=== PATIENT | male | born 1930 | race Two or more races ===

== ENCOUNTER 2017-05-02 17:21 | Emergency (ER) | payer MEDICARE, OTHER, MEDICAID ==
[~2017-05-02] VITALS: Ht 154.9 cm; Wt 63.5 kg
[~2017-05-02 17:21] MED LIST: BACITRACIN15 GM TOPIC; COLACE100 MG ORAL; CYANOCOBAL1000 MCG/2 IJ; EXELON1.5 MG ORAL; FISH OIL EC 1,1 EACH PO; FLOMAX0.4 MG ORAL; KEFLEX500 MG ORAL; LASIX20 M1 ORAL; MAXZIDE 75 MG-1 EACH PO; MOBIC15 MG ORAL; MUPIROCIN22 GM TOPIC; NITROSTAT0.4 M1 SL; NORCO 5-325 TA1 EACH ORAL; PROTONIX40 MG ORAL; SERTRALINE HCL25 MG ORAL; SIMVASTATIN20 MG ORAL; SYNTHROID100 MCG ORAL; TYLENOL EXTRA500 MG ORAL; TYLENOL WITH C1 EACH ORAL; ULTRAM50 MG ORAL; ZESTRIL20 MG ORAL; ZOLOFT100 MG ORAL
[2017-05-02 17:45] VITALS: BP 142/82
[2017-05-02] MEDS ORDERED: TYLENOL EXTRA500 MG ORAL (18:35)
[2017-05-02 20:39] VITALS: BP 137/80
--- NOTE | 2017-05-02 21:37 | Emergency Room Report ---
History of Present Illness General Chief Complaint: Multiple Trauma/Fall Source: Patient, Medical Record Present Illness HPI 86-year-old male presents ED status post fall. Patient had a witnessed fall at the half-way. Patient is not recall if he hit his head or LOC. Patient presenting with some left shoulder pain. 5/10, throbbing, nonradiating. Denies any other injuries. Denies photophobia or blurry vision. Denies nausea or vomiting. Denies back pain hip pain. No other aggravating or leading factors. Denies any other associated symptoms Allergies: Coded Allergies: No Known Allergies (Unverified , 05/30/14) Patient History Past Medical History: other - hypothyroid Past Surgical History: none Pertinent Family History: none Social History: Denies: smoking, alcohol use, drug use Immunizations: UTD Reviewed Nursing Documentation: PMH: Agreed, PSxH: Agreed Nursing Documentation-PMH Past Medical History: No History, Except For Hx Cardiac Problems: Yes - hypothyroid,dysrythmia, high cholesterol Hx Hypertension: Yes - HIGH CHOLESTEROL Review of Systems All Other Systems: negative except mentioned in HPI Physical Exam Vital Signs Date Time Temp Pulse Resp B/P (MAP) Pulse Ox O2 Delivery O2 Flow Rate FiO2 05/02/17 17:11 98.1 90 16 142/82 100 Room Air Sp02 EP Interpretation: reviewed, normal General Appearance: no apparent distress, alert, GCS 15, non-toxic Head: normocephalic, atraumatic Eyes: bilateral eye normal inspection, bilateral eye PERRL ENT: hearing grossly normal, normal pharynx, no angioedema, normal voice Neck: full range of motion, supple/symm/no masses Respiratory: chest non-tender, lungs clear, normal breath sounds, speaking full sentences Cardiovascular #1: regular rate, rhythm, no edema Cardiovascular #2: 2+ carotid (R), 2+ carotid (L), 2+ radial (R), 2+ radial (L) , 2+ dorsalis pedis (R), 2+ dorsalis pedis (L) Gastrointestinal: normal bowel sounds, non tender, soft, non-distended, no guarding, no rebound Rectal: deferred Genitourinary: normal inspection, no CVA tenderness Musculoskeletal: back normal, gait/station normal, normal range of motion, non- tender, tender - L shoulder Neurologic: alert, oriented x3, responsive, motor strength/tone normal, sensory intact, speech normal Psychiatric: judgement/insight normal, memory normal, mood/affect normal, no suicidal/homicidal ideation Reflexes: 3+ bicep (R), 3+ bicep (L), 3+ tricep (R), 3+ tricep (L), 3+ knee (R) , 3+ knee (L) Skin: normal color, no rash, warm/dry, well hydrated Lymphatic: no adenopathy Procedures Splinting Splinting : Consent: Verbal Pre-Made Type: MAEGAN wrap - L shoulder Pre-Proc Neuro Vasc Exam: normal Post-Proc Neuro Vasc Exam: normal Patient Tolerated: Well Complications: None Medical Decision Making Diagnostic Impression: Primary Impression: Fall Qualified Codes: W19.XXXA - Unspecified fall, initial encounter Additional Impression: Shoulder contusion Qualified Codes: S40.012A - Contusion of left shoulder, initial encounter ER Course Hospital Course 86-year-old male presents status post fall at half-way. Shoulder pain Differential diagnoses include: Fracture, dislocation, sprain, contusion Clinical course Patient placed on stretcher. After initial history and physical, I ordered CT head and Xrays of L shoulder CT head unremarkable Xrays prelim read shows no acute fracture/dislocation. placed in sling Patient appears stable, emulating well. Safe to discharge back to assisted facility Diagnosis - fall, shoulder contusion Stable and discharged to home with prescription for Tylenol. apply ice, keep elevated. weight bear as tolerated. Followup with PMD. Return to ED if symptoms recur or worsen Other X-Ray Diagnostic Results Other X-Ray Diagnostic Results : X-Ray ordered: L shoulder # of Views/Limited Vs Complete: 3 View Indication: Pain EP Interpretation: Yes Interpretation: no dislocation, no soft tissue swelling, no fractures Impression: No acute disease Electronically Signed by: Electronically signed by Zane Garcia MD CT/MRI/US Diagnostic Results CT/MRI/US Diagnostic Results : Imaging Test Ordered: CT head Impression no acute process Last Vital Signs Date Time Temp Pulse Resp B/P (MAP) Pulse Ox O2 Delivery O2 Flow Rate FiO2 05/02/17 20:39 98.1 16 137/80 100 Room Air 05/02/17 17:11 90 Status: improved Disposition: XFER SNF Condition: Stable Scripts Acetaminophen* (TYLENOL EXTRA STRENGTH*) 500 Mg Tablet 500 MG ORAL Q8H Y for Prn Headache/Temp > 101, #30 TAB 0 Refills Prov: ZANE GARCIA M.D. 05/02/17 Referrals: CHRIS MISHRA (PCP) Patient Instructions: Fall Prevention in Hospitals, Adult ZANE GARCIA M.D. May 02, 2017 21:36
[2017-05-02 22:17] VITALS: BP 137/80
--- NOTE | 2017-05-03 09:54 | Diagnostic Imaging Report ---
Indication: Head trauma. Headache Technique: Contiguous 5 mm thick transaxial imaging of the head obtained in a Siemens Sensation [address] scanner. Soft tissue and bone windows generated. Automatic Exposure Control was utilized. Total Dose length Product (DLP): 1435.[address] Dose Index Volume (CTDIvol): 70.38 mGy Comparison: none Findings: There is moderate prominence of the ventricles, basal cisterns, and cerebral sulci consistent with atrophy. Moderate, nonspecific, white matter hypoattenuation is noted throughout the brain consistent with chronic small vessel disease. There is no midline shift, edema, acute hemorrhage, mass effect, or abnormal extra-axial fluid collections. Bones and extra osseous soft tissues are unremarkable. Impression: No acute intracranial bleed, mass effect or edema. Moderate atrophy of the brain. Evidence of chronic small vessel disease involving white matter tracts. [facility] has communicated the preliminary results to the Emergency Department. Their findings are largely concordant with this report. The CT scanner at [facility] is accredited by the [employer] and the scans are performed using dose optimization techniques as appropriate to a performed exam including Automatic Exposure control.
--- NOTE | 2017-05-03 11:36 | Diagnostic Imaging Report ---
Indication: Pain Findings: 3 views of the left shoulder were obtained. The bones are osteopenic. There is no malalignment or fracture definitely identified. Soft tissues are unremarkable. The aorta is ectatic and moderately calcified. There are surgical clips in the left hilum. IMPRESSION: No acute injury appreciated. Moderate generalized osteopenia
== END 2017-05-02 22:18 ==
LOC: EDBD 17:21 → EEVIPCON 17:21 → EMR 17:55
DX: S40.012A Contusion of left shoulder, initial encounter (principal); E03.9 Hypothyroidism, unspecified; R51 Headache; E78.00 Pure hypercholesterolemia, unspecified; W18.30XA Fall on same level, unspecified, initial encounter; Y92.129 Unspecified place in nursing home as the place of occurrence of the external cause
CPT/HCPCS: 70450; 99284

== ENCOUNTER 2020-04-26 14:33 | Inpatient (IN) | payer MEDICARE, MEDICAID ==
[~2020-04-26] VITALS: Ht 162.6 cm; Wt 70.3 kg
--- NOTE | 2020-04-26 15:08 | Emergency Room Report ---
History of Present Illness General Chief Complaint: Multiple Trauma/Fall Present Illness HPI 89-year-old gentleman here with generalized weakness. The patient tested positive for Covid at his assisted living facility yesterday. The patient's son spoke with the patient today and said that he was feeling generally weak but the patient said that he did not want to come to the hospital. The patient denies any fevers, chills, chest pain, palpitations, shortness of breath, abdominal pain, nausea, vomiting, diarrhea, dysuria. Says that he feels some mild lower back pain after suffering a mechanical fall 3 days ago. No focal numbness or weakness, saddle anesthesia, urinary or fecal retention or incontinence. Patient is a confirmed DNR. Allergies: Coded Allergies: No Known Allergies (Unverified , 05/30/14) COVID-19 Screening Contact w/high risk pt: No Experienced COVID-19 symptoms?: No COVID-19 Testing performed [employer]: No Nursing Documentation-PMH Hx Cardiac Problems: Yes - hypothyroid,dysrythmia, high cholesterol Hx Hypertension: Yes - HIGH CHOLESTEROL Physical Exam Vital Signs Date Time Temp Pulse Resp B/P (MAP) Pulse Ox O2 Delivery O2 Flow Rate FiO2 04/26/20 14:35 97.9 52 16 152/80 (104) 98 Room Air Sp02 EP Interpretation: reviewed, normal General Appearance: no apparent distress, alert, non-toxic Head: normocephalic, atraumatic Eyes: bilateral eye normal inspection, bilateral eye PERRL ENT: hearing grossly normal, normal pharynx, no angioedema, normal voice Neck: full range of motion, supple/symm/no masses Respiratory: chest non-tender, lungs clear, normal breath sounds, speaking full sentences Cardiovascular #1: regular rate, rhythm, no edema Cardiovascular #2: 2+ carotid (R), 2+ carotid (L), 2+ radial (R), 2+ radial (L), 2+ dorsalis pedis (R), 2+ dorsalis pedis (L) Gastrointestinal: normal bowel sounds, non tender, soft, non-distended, no guarding, no rebound Rectal: deferred Genitourinary: normal inspection, no CVA tenderness Musculoskeletal: normal range of motion, gait/station normal, other - Mild tenderness of the midline distal lumbosacral spine. No obvious step-offs or deformities Neurologic: alert, motor strength/tone normal, oriented x3, sensory intact, responsive, speech normal Psychiatric: judgement/insight normal, memory normal, mood/affect normal, no suicidal/homicidal ideation Lymphatic: no adenopathy Medical Decision Making Diagnostic Impression: Primary Impression: UTI (urinary tract infection) Additional Impressions: Fall COVID-19 ER Course Laboratory Tests Test 04/26/20 15:56 04/26/20 16:28 White Blood Count 2.5 K/UL (4.8-10.8) L Red Blood Count 5.47 M/UL (4.70-6.10) Hemoglobin 11.6 G/DL (14.2-18.0) L Hematocrit 35.6 % (42.0-52.0) L Mean Corpuscular Volume 65 FL (80-99) L Mean Corpuscular Hemoglobin 21.3 PG (27.0-31.0) L Mean Corpuscular Hemoglobin Concent 32.6 G/DL (32.0-36.0) Red Cell Distribution Width 15.5 % (11.6-14.8) H Platelet Count 95 K/UL (150-450) L Mean Platelet Volume 8.6 FL (6.5-10.1) Neutrophils (%) (Auto) % (45.0-75.0) Lymphocytes (%) (Auto) % (20.0-45.0) Monocytes (%) (Auto) % (1.0-10.0) Eosinophils (%) (Auto) % (0.0-3.0) Basophils (%) (Auto) % (0.0-2.0) Differential Total Cells Counted 100 Neutrophils % (Manual) 55 % (45-75) Lymphocytes % (Manual) 39 % (20-45) Monocytes % (Manual) 4 % (1-10) Eosinophils % (Manual) 2 % (0-3) Basophils % (Manual) 0 % (0-2) Band Neutrophils 0 % (0-8) Platelet Estimate Decreased L Platelet Morphology Normal Hypochromasia 1+ Anisocytosis 1+ Microcytosis 1+ Prothrombin Time 10.7 SEC (9.30-11.50) Prothrombin Time INR 1.0 (0.9-1.1) Activated Partial Thromboplast Time 30 SEC (23-33) D-Dimer 0.93 mg/L FEU (0.00-0.49) H Sodium Level 138 MMOL/L (136-145) Potassium Level 4.7 MMOL/L (3.5-5.1) Chloride Level 105 MMOL/L (98-107) Carbon Dioxide Level 30 MMOL/L (21-32) Anion Gap 3 mmol/L (5-15) L Blood Urea Nitrogen 32 mg/dL (7-18) H Creatinine 1.2 MG/DL (0.55-1.30) Estimated Glomerular Filtration Rate 57.3 mL/min (>60) Glucose Level 90 MG/DL (74-106) Lactic Acid Level 0.90 mmol/L (0.4-2.0) Calcium Level 8.4 MG/DL (8.5-10.1) L Ferritin 111 NG/ML (8-388) Total Bilirubin 0.3 MG/DL (0.2-1.0) Aspartate Amino Transferase (AST) 24 U/L (15-37) Alanine Aminotransferase (ALT) 15 U/L (12-78) Alkaline Phosphatase 81 U/L (46-116) Lactate Dehydrogenase 173 U/L (81-234) Total Creatine Kinase 82 U/L (26-308) Creatine Kinase MB 2.1 NG/ML (0.0-3.6) Creatine Kinase MB Relative Index 2.5 Troponin I 0.025 ng/mL (0.000-0.056) C-Reactive Protein, Quantitative 2.1 mg/dL (0.00-0.90) H Pro-B-Type Natriuretic Peptide 360 pg/mL (0-125) H Total Protein 6.4 G/DL (6.4-8.2) Albumin 2.9 G/DL (3.4-5.0) L Globulin 3.5 g/dL Albumin/Globulin Ratio 0.8 (1.0-2.7) L Lipase 235 U/L (73-393) Urine Color Yellow Urine Appearance Slightly cloudy Urine pH 6 (4.5-8.0) Urine Specific [place] 1.020 (1.005-1.035) Urine Protein 1+ (NEGATIVE) H Urine Glucose (UA) Negative (NEGATIVE) Urine Ketones Negative (NEGATIVE) Urine Blood Negative (NEGATIVE) Urine Nitrite Positive (NEGATIVE) H Urine Bilirubin Negative (NEGATIVE) Urine Urobilinogen Normal MG/DL (0.0-1.0) Urine Leukocyte Esterase 1+ (NEGATIVE) H Urine RBC 0-2 /HPF (0 - 0) H Urine WBC 5-10 /HPF (0 - 0) H Urine Squamous Epithelial Cells Occasional /LPF Urine Bacteria Many /HPF (NONE) H EK bpm, sinus rhythm no ischemia, intervals WNL. No ectopy Rhythm strip: patient monitored for arrhythmias - no malignant dysrhythmias, runs of PVCs, nor pauses noted Chest x-ray: CXR: No infiltrate/effusion. Possible cardiomegaly. No consolidations. No free air under the diaphragm. No bony abnormalities. Underinflation CT head: Chronic and age-related changes. Negative for acute intracranial bleed or mass-effect CT lumbar spine: Severe and progressive degenerative changes involving T11-T12 and T12-L1 as well as thoracolumbar scoliotic deformity. Likely progressive degenerative remodeling of L1 vertebral body. Could also be due to thoracic compression fracture deformity, acuity indeterminate. 89-year-old male confirmed Covid positive yesterday, here with generalized weakness and multiple falls. Patient was hemodynamically stable in the emergency department and in no acute distress whatsoever. He had normal oxygen saturation on room air and showed no evidence of respiratory distress or increased respiratory effort. He had mild tenderness to palpation of the lower lumbar spine. CT of the lumbar spine showed possible compression fracture of L1, however patient had no tenderness on palpation of this region. Unlikely to be an acute fracture at this time. He had a CT head as well that was unremarkable. Chest x-ray was underinflated but did not show any acute abnormalities. Patient did have evidence of urinary tract infection. Blood and urine cultures pending at this time. He was given Rocephin, azithromycin, Decadron in the emergency department. To be admitted to telemetry. Last Vital Signs Date Time Temp Pulse Resp B/P (MAP) Pulse Ox O2 Delivery O2 Flow Rate FiO2 04/26/20 14:35 97.9 52 16 152/80 (104) 98 Room Air Red Vasquez M.D. Apr 26, 2020 15:08
[2020-04-26] MEDS ORDERED: OMEPRAZOLE20 M2 ORAL (15:20)
[2020-04-26] MEDS ORDERED: LORATADINE10 M1 PO (15:20)
[2020-04-26 16:00] VITALS: BP 121/99
[2020-04-26 16:12] LABS: HEMATOCRIT 35.6 % (42.0-52.0); HEMOGLOBIN 11.6 G/DL (14.2-18.0); MEAN CORPUSCULAR VOLUME 65 FL (80-99); PLATELET COUNT 95 K/UL (150-450); RED BLOOD COUNT 5.47 M/UL (4.70-6.10); RED CELL DISTRIBUTION WIDTH 15.5 % (11.6-14.8); WHITE BLOOD COUNT 2.5 K/UL (4.8-10.8)
[2020-04-26 16:30] LABS: CALCIUM 8.4 MG/DL (8.5-10.1); CREATININE 1.2 MG/DL (0.55-1.30); POTASSIUM 4.7 MMOL/L (3.5-5.1)
[2020-04-26 16:48] LABS: ALBUMIN 2.9 G/DL (3.4-5.0); ALBUMIN/GLOBULIN RATIO 0.8 (1.0-2.7); BILIRUBIN,TOTAL 0.3 MG/DL (0.2-1.0); CKMB 2.1 NG/ML (0.0-3.6)
--- NOTE | 2020-04-26 17:09 | Diagnostic Imaging Report ---
Indications: Back pain, status post fall 3 days prior Technique: Spiral acquisitions obtained through the lumbar spine. Multiplanar reconstructions were generated. No IV contrast utilized. Total dose length product 413 mGycm. CTDIvol(s) 11 mGy. Dose reduction achieved using automated exposure control Comparison: 08/22/2015 Findings: As previously demonstrated, there is marked scoliotic deformity and degenerative change at the thoracolumbar junction. There is severe degenerative change of the T11-12 and T12-L1 discs. There is also lateral offset to the right of L1 on T12. There is interim loss of height of the L1 vertebral body, particularly anterior and on the left lateral aspect, with increased sclerosis below the endplate. There is slightly increased loss of height of the T12 vertebral body as well as compared to the prior study, although some of the anterior wedging was evident previously. The previously noted soft tissue in the inferior T12 endplate and disc has largely ossified in the interim. There are numerous subchondral cysts on either side of the T12-L1 disc but these are smaller than on the prior exam. Very slight loss of height of the left side of the L2 vertebral body is similar to the previous exam and almost certainly due to degenerative remodeling. Subchondral sclerosis and subchondral cyst formation has progressed somewhat in the interim. The remaining vertebral body heights are preserved and the bony alignment is otherwise unchanged. No other evidence of acute fracture or acute alignment abnormality. There is again demonstrated vacuum formation involving the L4-5 and L5-S1 discs. At T12-L1, there is severe narrowing of the left neural foramen. No significant disc bulge or protrusion or spinal stenosis or neural foraminal stenosis. At L1-L2, there is mild narrowing of the left neural foramen, mostly due to circumferential annular bulge. At L3-4, short pedicles and ligamentum flavum hypertrophy result in borderline narrowing of the spinal canal. The neural foramina are preserved. At L4-5, circumferential annular bulge, short pedicles, and ligamentum flavum hypertrophy results in mild narrowing the spinal canal. The neural foramina are preserved. The included extra spinal soft tissues are remarkable for the presence of a hyperdense left renal cyst and a very large right renal cyst. Ill-defined parenchymal opacities are seen at both lung bases. Impression: Severe and progressive degenerative changes involving T11-12 and T12-L1 as well as thoracolumbar scoliotic deformity. Progressive loss of height of the L1 vertebral body. This may be due to progressive degenerative remodeling, but could also be due to thoracic compression fracture deformity, acuity indeterminate. MRI may be useful to clarify if clinically indicated Very slight loss of height of the T12 vertebral body in the interim. Suspected on the basis of progressive degenerative remodeling No other evidence of acute fracture Multilevel degenerative changes, as detailed above Bilateral renal cysts Nonspecific ill-defined parenchymal opacities at the lung bases The CT scanner at [facility] is accredited by the [employer] and the scans are performed using protocols designed to limit radiation exposure to as low as reasonably achievable to attain images of sufficient resolution adequate for diagnostic evaluation.
--- NOTE | 2020-04-26 17:11 | Diagnostic Imaging Report ---
Indication: Pain, cough, status post fall Technique: One view of the chest Comparison: none Findings: Suboptimal inspiration. This results in crowding of the bronchovascular markings. No definite acute infiltrates, effusions, or congestion. There is evidence of prior median sternotomy. Impression: Hypoventilatory exam. No definite acute abnormality
--- NOTE | 2020-04-26 17:14 | Diagnostic Imaging Report ---
Indications: Pain, 3 days status post fall Technique: Spiral acquisitions obtained through the brain. Angled axial and coronal 5 x 5 mm slices were reconstructed. Total dose length product 1045 mGycm. CTDI vol(s) 53 mGy. Dose reduction achieved using automated exposure control Comparison: 05/02/2017 Findings: Again demonstrated is age-related enlargement of the ventricles and extra axial CSF spaces. 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 No acute intracranial hemorrhage or edema, mass effect, or midline shift. There is generalized age-related enlargement of the ventricles and extra-axial CSF spaces. There is fairly extensive periventricular deep white matter low attenuation, consistent with chronic microvascular ischemic change. The calvarium is intact. The mastoids are hypoplastic. Visualized orbits are unremarkable. There is mild ethmoid sinus opacification and bilateral maxillary sinus mucosal disease. Findings are unchanged Impression: Chronic and age related changes. Negative for acute intracranial bleed or mass effect. The CT scanner at [facility] is accredited by the [employer] and the scans are performed using protocols designed to limit radiation exposure to as low as reasonably achievable to attain images of sufficient resolution adequate for diagnostic evaluation.
[2020-04-26 17:16] LABS: BILIRUBIN, URINE NEGATIVE (NEGATIVE); GLUCOSE, URINE (UA) NEGATIVE (NEGATIVE); KETONES,URINE NEGATIVE (NEGATIVE); LEUKOCYTE ESTERASE ,URINE 1+ (NEGATIVE); NITRITE,URINE POSITIVE (NEGATIVE); PH,URINE 6 (4.5-8.0); PROTEIN,URINE 1+ (NEGATIVE); UROBILINOGEN,URINE NORMAL MG/DL (0.0-1.0)
[2020-04-26 17:20] LABS: APPEARANCE,URINE SLIGHTLY CLOUDY; COLOR,URINE YELLOW
[2020-04-26] MEDS ORDERED: cefTRIAXone 1 GM in NS 55 ML IVPB ONE (17:45)
[2020-04-26] MEDS ORDERED: dexAMETHasone 10mg/ml Inj IV ONE (18:15)
[2020-04-26] MEDS ORDERED: Albuterol/Ipratropium 3ml neb HHN PRN (18:15)
[2020-04-26] MEDS ORDERED: Azithromycin 250mg tab ORAL ONE (18:15)
[2020-04-26 18:58] VITALS: BP 132/73
[2020-04-26] MEDS: Heparin 5000 units/ml inj SUBQ SCH (22:00)
[2020-04-26 22:15] VITALS: BP 148/76
[2020-04-27] VITALS (9 sets, daily range): BP systolic 111–186; BP diastolic 71–80
[2020-04-27] MEDS ORDERED: Vancomycin 1 GM in D5W 275 ML IV SCH (00:30)
[2020-04-27] MEDS ORDERED: Cefepime HCl 2 GM in D5W 110 ML IV SCH (04:00)
[2020-04-27] MEDS ORDERED: Vancomycin 1.25gm/250ml Premix IVPB ONE (05:00)
[2020-04-27 05:09] LABS: HEMATOCRIT 37.4 % (42.0-52.0); HEMOGLOBIN 11.9 G/DL (14.2-18.0); MEAN CORPUSCULAR VOLUME 66 FL (80-99); PLATELET COUNT 97 K/UL (150-450); RED BLOOD COUNT 5.64 M/UL (4.70-6.10); RED CELL DISTRIBUTION WIDTH 14.8 % (11.6-14.8)
[2020-04-27 05:14] LABS: WHITE BLOOD COUNT 1.4 K/UL (4.8-10.8)
[2020-04-27 05:20] LABS: ALBUMIN 2.9 G/DL (3.4-5.0); ALBUMIN/GLOBULIN RATIO 0.7 (1.0-2.7); BILIRUBIN,TOTAL 0.3 MG/DL (0.2-1.0); CALCIUM 8.3 MG/DL (8.5-10.1); CREATININE 1.2 MG/DL (0.55-1.30); PHOSPHORUS 3.5 MG/DL (2.5-4.9); POTASSIUM 4.1 MMOL/L (3.5-5.1)
--- NOTE | 2020-04-27 08:58 | Consultation ---
History of Present Illness General Date patient seen: Apr 27, 2020 Time patient seen: 11:06 Chief Complaint: Multiple Trauma/Fall Referring physician: PCP Reason for Consultation: COVID+ Present Illness HPI 89yo M who p/w weakness, COVID + for which ID is consulted. Pt AF, HDS on RA in house. Leukopenic. Per ED d/w pt's son, he was feeling generally weak but the patient said that he did not want to come to the hospital. The patient denies any fevers, chills, chest pain, palpitations, shortness of breath, abdominal pain, nausea, vomiting, diarrhea, dysuria. Says that he feels some mild lower back pain after suffering a mechanical fall 3 days ago. No focal numbness or weakness, saddle anesthesia, urinary or fecal retention or incontinence. Pt is calm in bed on RA, denies any issues breathing nor pain, wants to go home. Doing well. Allergies: Coded Allergies: No Known Allergies (Unverified , 05/30/14) Medication History Scheduled Cyanocobalamin (Vitamin B-12) (Cyanocobalamin Injection), 1,000 MCG IJ EVERY 2 WEEKS, (Reported) Docusate Sodium* (Colace*), 100 MG ORAL TWICE A DAY Furosemide* (Lasix*), 20 MG ORAL TWICE A DAY, (Reported) Levothyroxine Sodium* (Synthroid*), 112 MCG ORAL DAILY, (Reported) Lisinopril* (Zestril*), 20 MG ORAL DAILY, (Reported) Loratadine (Claritin*), 10 MG PO DAILY, (Reported) Meloxicam* (Mobic*), 7.5 MG ORAL DAILY, (Reported) [place]-3/Dha/Epa/Fish Oil (Fish Oil Ec 1,000 Mg Softgel), 1 EACH PO BID, (Reporte d) Omeprazole (Omeprazole), 20 MG ORAL DAILY, (Reported) Pantoprazole* (Protonix*), 40 MG ORAL DAILY, (Reported) Rivastigmine Tartrate* (Exelon*), 1.5 MG ORAL TWICE A DAY, (Reported) Sertraline Hcl* (Sertraline Hcl*), 50 MG ORAL DAILY, (Reported) Sertraline Hcl* (Zoloft*), 100 MG ORAL DAILY, (Reported) Simvastatin (Zocor), 20 MG ORAL BEDTIME, (Reported) Tamsulosin HCl (Flomax), 0.4 MG ORAL DAILY, (Reported) Tamsulosin HCl (Flomax), 0.4 MG ORAL DAILY, (Reported) Tramadol Hcl (Ultram*), 50 MG ORAL Q6H, (Reported) Scheduled PRN Acetaminophen With Codeine 300MG/30MG (T#3)* (Tylenol With Codeine #3 Tablet*), 1 TAB ORAL Q6H PRN for For Pain, (Reported) Acetaminophen* (Tylenol Extra Strength*), 500 MG ORAL Q6H PRN for Mild Pain/Temp > 100.5, (Reported) Acetaminophen* (Tylenol Extra Strength*), 500 MG ORAL Q8H PRN for Prn Headache/Temp > 101 Hydrocodone Bit/Acetaminophen 5-325* ([place] 5-325*), 1 TAB ORAL Q6H PRN for For Pain Hydrocodone Bit/Acetaminophen 5-325* ([place] 5-325*), 1 TAB ORAL Q6H PRN for For Pain Nitroglycerin (Nitrostat), 0.4 MG SL Q5M X3 DOSES PRN for For Pain, (Reported) Miscellaneous Medications Triamterene/Hydrochlorothiazid (Maxzide 75 Mg-50 Mg Tablet), 0.5 EACH PO, (Reported) Patient History Healthcare decision maker Resuscitation status Advanced Directive on File Review of Systems ROS Narrative 10-point ROS neg except as noted per HPI Physical Exam Physical Exam Narrative Gen: NAD HEENT: NCAT Pulm: BL chest rise Abd: Non-distended Ext: No c/c/e Skin: No visible rashes Neuro: Awake Last 24 Hour Vital Signs Date Time Temp Pulse Resp B/P (MAP) Pulse Ox O2 Delivery O2 Flow Rate FiO2 04/27/20 08:29 97.7 60 16 140/71 100 Room Air 04/27/20 06:40 97.7 59 16 144/73 100 Room Air 04/27/20 04:14 98.2 55 18 138/71 100 Room Air 04/27/20 02:04 98.0 53 16 143/78 100 Room Air 04/27/20 00:00 98.5 58 18 137/72 100 Room Air 04/26/20 22:15 98.5 63 18 148/76 100 Room Air 04/26/20 18:58 98.5 58 16 132/73 99 Room Air 04/26/20 16:00 54 16 121/99 100 Room Air 04/26/20 16:00 51 14 Room Air 04/26/20 14:35 97.9 52 16 152/80 (104) 98 Room Air Intake and Output 04/26/20 04/27/20 19:00 07:00 Intake Total 290 ml 360 ml Balance 290 ml 360 ml Intake Oral 240 ml IV Total 50 ml 360 ml Laboratory Tests Test 04/26/20 15:56 04/26/20 16:28 04/27/20 04:45 White Blood Count 2.5 K/UL (4.8-10.8) L 1.4 K/UL (4.8-10.8) *L Red Blood Count 5.47 M/UL (4.70-6.10) 5.64 M/UL (4.70-6.10) Hemoglobin 11.6 G/DL (14.2-18.0) L 11.9 G/DL (14.2-18.0) L Hematocrit 35.6 % (42.0-52.0) L 37.4 % (42.0-52.0) L Mean Corpuscular Volume 65 FL (80-99) L 66 FL (80-99) L Mean Corpuscular Hemoglobin 21.3 PG (27.0-31.0) L 21.0 PG (27.0-31.0) L Mean Corpuscular Hemoglobin Concent 32.6 G/DL (32.0-36.0) 31.7 G/DL (32.0-36.0) L Red Cell Distribution Width 15.5 % (11.6-14.8) H 14.8 % (11.6-14.8) Platelet Count 95 K/UL (150-450) L 97 K/UL (150-450) L Mean Platelet Volume 8.6 FL (6.5-10.1) 8.6 FL (6.5-10.1) Neutrophils (%) (Auto) % (45.0-75.0) % (45.0-75.0) Lymphocytes (%) (Auto) % (20.0-45.0) % (20.0-45.0) Monocytes (%) (Auto) % (1.0-10.0) % (1.0-10.0) Eosinophils (%) (Auto) % (0.0-3.0) % (0.0-3.0) Basophils (%) (Auto) % (0.0-2.0) % (0.0-2.0) Differential Total Cells Counted 100 Neutrophils % (Manual) 55 % (45-75) Pending Lymphocytes % (Manual) 39 % (20-45) Pending Monocytes % (Manual) 4 % (1-10) Eosinophils % (Manual) 2 % (0-3) Basophils % (Manual) 0 % (0-2) Band Neutrophils 0 % (0-8) Platelet Estimate Decreased L Pending Platelet Morphology Normal Pending Hypochromasia 1+ Anisocytosis 1+ Microcytosis 1+ Prothrombin Time 10.7 SEC (9.30-11.50) Prothromb Time International Ratio 1.0 (0.9-1.1) Activated Partial Thromboplast Time 30 SEC (23-33) D-Dimer 0.93 mg/L FEU (0.00-0.49) H Sodium Level 138 MMOL/L (136-145) 135 MMOL/L (136-145) L Potassium Level 4.7 MMOL/L (3.5-5.1) 4.1 MMOL/L (3.5-5.1) Chloride Level 105 MMOL/L (98-107) 101 MMOL/L (98-107) Carbon Dioxide Level 30 MMOL/L (21-32) 26 MMOL/L (21-32) Anion Gap 3 mmol/L (5-15) L 8 mmol/L (5-15) Blood Urea Nitrogen 32 mg/dL (7-18) H 27 mg/dL (7-18) H Creatinine 1.2 MG/DL (0.55-1.30) 1.2 MG/DL (0.55-1.30) Estimat Glomerular Filtration Rate 57.3 mL/min (>60) 57.3 mL/min (>60) Glucose Level 90 MG/DL (74-106) 132 MG/DL (74-106) H Lactic Acid Level 0.90 mmol/L (0.4-2.0) Calcium Level 8.4 MG/DL (8.5-10.1) L 8.3 MG/DL (8.5-10.1) L Ferritin 111 NG/ML (8-388) Total Bilirubin 0.3 MG/DL (0.2-1.0) 0.3 MG/DL (0.2-1.0) Aspartate Amino Transf (AST/SGOT) 24 U/L (15-37) 22 U/L (15-37) Alanine Aminotransferase (ALT/SGPT) 15 U/L (12-78) 13 U/L (12-78) Alkaline Phosphatase 81 U/L (46-116) 88 U/L (46-116) Lactate Dehydrogenase 173 U/L (81-234) Total Creatine Kinase 82 U/L (26-308) Creatine Kinase MB 2.1 NG/ML (0.0-3.6) Creatine Kinase MB Relative Index 2.5 Troponin I 0.025 ng/mL (0.000-0.056) C-Reactive Protein, Quantitative 2.1 mg/dL (0.00-0.90) H 1.8 mg/dL (0.00-0.90) H Pro-B-Type Natriuretic Peptide 360 pg/mL (0-125) H Total Protein 6.4 G/DL (6.4-8.2) 6.8 G/DL (6.4-8.2) Albumin 2.9 G/DL (3.4-5.0) L 2.9 G/DL (3.4-5.0) L Globulin 3.5 g/dL 3.9 g/dL Albumin/Globulin Ratio 0.8 (1.0-2.7) L 0.7 (1.0-2.7) L Lipase 235 U/L (73-393) Urine Color Yellow Urine Appearance Slightly cloudy Urine pH 6 (4.5-8.0) Urine Specific [place] 1.020 (1.005-1.035) Urine Protein 1+ (NEGATIVE) H Urine Glucose (UA) Negative (NEGATIVE) Urine Ketones Negative (NEGATIVE) Urine Blood Negative (NEGATIVE) Urine Nitrite Positive (NEGATIVE) H Urine Bilirubin Negative (NEGATIVE) Urine Urobilinogen Normal MG/DL (0.0-1.0) Urine Leukocyte Esterase 1+ (NEGATIVE) H Urine RBC 0-2 /HPF (0 - 0) H Urine WBC 5-10 /HPF (0 - 0) H Urine Squamous Epithelial Cells Occasional /LPF Urine Bacteria Many /HPF (NONE) H Erythrocyte Sedimentation Rate 18 MM/HR (0-20) Phosphorus Level 3.5 MG/DL (2.5-4.9) Magnesium Level 1.7 MG/DL (1.8-2.4) L Microbiology Date/Time Source Procedure Growth Status 04/27/20 07:10 Nasopharynx SARS-CoV-2 RdRp Gene Assay - Final Complete 04/26/20 18:00 Rectal Mucosa Received Height (Feet): 5 Height (Inches): 4.00 Weight (Pounds): 175 Medications Current Medications Medications (Trade) Dose Ordered Sig/Viktor Route PRN Reason Start Time Stop Time Status Last Admin Dose Admin Acetaminophen (Tylenol) 650 mg Q4H PRN ORAL fever 04/26/20 18:15 05/26/20 18:14 Albuterol/ Ipratropium (Albuterol/ Ipratropium) 3 ml Q4H PRN HHN Shortness of Breath 04/26/20 18:15 05/01/20 18:14 Cefepime HCl 2 gm/ Dextrose 110 ml @ 220 mls/hr Q12HR@0400,1600 IV 04/27/20 04:00 05/04/20 03:59 04/27/20 03:14 Heparin Sodium (Porcine) (Heparin 5000 units/ml) 5,000 units EVERY 12 HOURS SUBQ 04/26/20 21:00 06/10/20 20:59 04/26/20 22:00 Levothyroxine Sodium (Synthroid) 112 mcg Q24H ORAL 04/27/20 06:30 05/27/20 06:29 04/27/20 07:21 Lisinopril (PriniviL) 20 mg DAILY ORAL 04/27/20 09:00 05/27/20 08:59 Ondansetron HCl (Zofran) 4 mg Q6H PRN IVP Nausea & Vomiting 04/26/20 18:15 05/26/20 18:14 Polyethylene Glycol (Miralax) 17 gm DAILYPRN PRN ORAL Constipation 04/26/20 18:15 05/26/20 18:14 Sertraline HCl (Zoloft) 50 mg DAILY ORAL 04/27/20 09:00 05/27/20 08:59 Tamsulosin HCl (Flomax) 0.4 mg DAILY ORAL 04/27/20 09:00 05/27/20 08:59 Temazepam (Restoril) 15 mg HSPRN PRN ORAL Insomnia 04/26/20 18:15 05/03/20 18:14 Vancomycin HCl (Vanco pharmacy to dose) 1 ea DAILY PRN MISC PER RX PROTOCOL 04/27/20 08:00 05/27/20 07:59 Vancomycin HCl 1 gm/Sodium Chloride 275 ml @ 183.708 mls/hr Q24H IVPB 04/28/20 05:00 05/03/20 04:59 Assessment/Plan Assessment/Plan: 89yo M with: COVID pna Leukopenic Satting well on RA 04/26 COVID rapid positive CXR: No acute process BCx p UA 5-10 WBC, UCx p Cr 1.2 Thrombocytopenia, plts in 90s SNF resident Plan: Stop cefepime/vanco Start CTX 1g IV daily #2/5, though if remains on RA can stop soon Monitor off steroids as pt doing well on RA Not candidate for RDV at this time as doing well on RA F/u BCx, UCx Monitor CBC/CMP Monitor temp curve, hemodynamics Monitor resp status COVID isolation D/w RN Thank you for this consult. [facility] will continue to follow. Lesley Lanier M.D. Apr 27, 2020 08:58
[2020-04-27] MEDS ORDERED: Lisinopril 20mg tab ORAL SCH (09:00)
[2020-04-27] MEDS: Heparin 5000 units/ml inj SUBQ SCH (09:00)
[2020-04-27] MEDS: Sertraline 50mg tab ORAL SCH (09:24)
[2020-04-27] MEDS: Tamsulosin 0.4mg cap ORAL SCH (09:24)
--- NOTE | 2020-04-27 13:12 | Consultation ---
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 Pt tested positive for COVID 19 at the halfway. He was found to have an UTI and is admitted for further management. Allergies: Coded Allergies: No Known Allergies (Unverified , 05/30/14) Medication History Scheduled Cyanocobalamin (Vitamin B-12) (Cyanocobalamin Injection), 1,000 MCG IJ EVERY 2 WEEKS, (Reported) Docusate Sodium* (Colace*), 100 MG ORAL TWICE A DAY Furosemide* (Lasix*), 20 MG ORAL TWICE A DAY, (Reported) Levothyroxine Sodium* (Synthroid*), 112 MCG ORAL DAILY, (Reported) Lisinopril* (Zestril*), 20 MG ORAL DAILY, (Reported) Loratadine (Claritin*), 10 MG PO DAILY, (Reported) Meloxicam* (Mobic*), 7.5 MG ORAL DAILY, (Reported) [place]-3/Dha/Epa/Fish Oil (Fish Oil Ec 1,000 Mg Softgel), 1 EACH PO BID, (Reported) Omeprazole (Omeprazole), 20 MG ORAL DAILY, (Reported) Pantoprazole* (Protonix*), 40 MG ORAL DAILY, (Reported) Rivastigmine Tartrate* (Exelon*), 1.5 MG ORAL TWICE A DAY, (Reported) Sertraline Hcl* (Sertraline Hcl*), 50 MG ORAL DAILY, (Reported) Sertraline Hcl* (Zoloft*), 100 MG ORAL DAILY, (Reported) Simvastatin (Zocor), 20 MG ORAL BEDTIME, (Reported) Tamsulosin HCl (Flomax), 0.4 MG ORAL DAILY, (Reported) Tamsulosin HCl (Flomax), 0.4 MG ORAL DAILY, (Reported) Tramadol Hcl (Ultram*), 50 MG ORAL Q6H, (Reported) Scheduled PRN Acetaminophen With Codeine 300MG/30MG (T#3)* (Tylenol With Codeine #3 Tablet*), 1 TAB ORAL Q6H PRN for For Pain, (Reported) Acetaminophen* (Tylenol Extra Strength*), 500 MG ORAL Q6H PRN for Mild Pain/Temp > 100.5, (Reported) Acetaminophen* (Tylenol Extra Strength*), 500 MG ORAL Q8H PRN for Prn Headache/Temp > 101 Hydrocodone Bit/Acetaminophen 5-325* ([place] 5-325*), 1 TAB ORAL Q6H PRN for For Pain Hydrocodone Bit/Acetaminophen 5-325* ([place] 5-325*), 1 TAB ORAL Q6H PRN for For Pain Nitroglycerin (Nitrostat), 0.4 MG SL Q5M X3 DOSES PRN for For Pain, (Reported) Miscellaneous Medications Triamterene/Hydrochlorothiazid (Maxzide 75 Mg-50 Mg Tablet), 0.5 EACH PO, (Reported) Patient History Healthcare decision maker Resuscitation status Advanced Directive on File Past Medical/Surgical History Past Medical/Surgical History: (1) Hx of CABG (2) Hx of endarterectomy (3) History of CVA (cerebrovascular accident) Review of Systems All Other Systems: negative except mentioned in HPI Physical Exam General Appearance: WD/WN, no apparent distress Lines, tubes and drains: peripheral HEENT: normocephalic, atraumatic Neck: non-tender, normal alignment Respiratory/Chest: chest wall non-tender, lungs clear Breasts: no masses Cardiovascular/Chest: normal rate Abdomen: normal bowel sounds, non tender, hyperactive bowel sounds Extremities: non-tender Last 24 Hour Vital Signs Date Time Temp Pulse Resp B/P (MAP) Pulse Ox O2 Delivery O2 Flow Rate FiO2 04/27/20 12:00 96.6 58 20 168/75 (106) 98 04/27/20 09:48 Room Air 04/27/20 09:27 186/80 04/27/20 09:06 97.7 60 16 140/71 100 Room Air 04/27/20 09:00 97.7 51 20 186/80 (115) 100 04/27/20 09:00 52 04/27/20 08:29 97.7 60 16 140/71 100 Room Air 04/27/20 06:40 97.7 59 16 144/73 100 Room Air 04/27/20 04:14 98.2 55 18 138/71 100 Room Air 04/27/20 02:04 98.0 53 16 143/78 100 Room Air 04/27/20 00:00 98.5 58 18 137/72 100 Room Air 04/26/20 22:15 98.5 63 18 148/76 100 Room Air 04/26/20 18:58 98.5 58 16 132/73 99 Room Air 04/26/20 16:00 54 16 121/99 100 Room Air 04/26/20 16:00 51 14 Room Air 04/26/20 14:35 97.9 52 16 152/80 (104) 98 Room Air Intake and Output 04/26/20 04/27/20 19:00 07:00 Intake Total 290 ml 360 ml Balance 290 ml 360 ml Intake Oral 240 ml IV Total 50 ml 360 ml Laboratory Tests Test 04/26/20 15:56 04/26/20 16:28 04/27/20 04:45 White Blood Count 2.5 K/UL (4.8-10.8) L 1.4 K/UL (4.8-10.8) *L Red Blood Count 5.47 M/UL (4.70-6.10) 5.64 M/UL (4.70-6.10) Hemoglobin 11.6 G/DL (14.2-18.0) L 11.9 G/DL (14.2-18.0) L Hematocrit 35.6 % (42.0-52.0) L 37.4 % (42.0-52.0) L Mean Corpuscular Volume 65 FL (80-99) L 66 FL (80-99) L Mean Corpuscular Hemoglobin 21.3 PG (27.0-31.0) L 21.0 PG (27.0-31.0) L Mean Corpuscular Hemoglobin Concent 32.6 G/DL (32.0-36.0) 31.7 G/DL (32.0-36.0) L Red Cell Distribution Width 15.5 % (11.6-14.8) H 14.8 % (11.6-14.8) Platelet Count 95 K/UL (150-450) L 97 K/UL (150-450) L Mean Platelet Volume 8.6 FL (6.5-10.1) 8.6 FL (6.5-10.1) Neutrophils (%) (Auto) % (45.0-75.0) % (45.0-75.0) Lymphocytes (%) (Auto) % (20.0-45.0) % (20.0-45.0) Monocytes (%) (Auto) % (1.0-10.0) % (1.0-10.0) Eosinophils (%) (Auto) % (0.0-3.0) % (0.0-3.0) Basophils (%) (Auto) % (0.0-2.0) % (0.0-2.0) Differential Total Cells Counted 100 100 Neutrophils % (Manual) 55 % (45-75) 75 % (45-75) Lymphocytes % (Manual) 39 % (20-45) 20 % (20-45) Monocytes % (Manual) 4 % (1-10) 5 % (1-10) Eosinophils % (Manual) 2 % (0-3) 0 % (0-3) Basophils % (Manual) 0 % (0-2) 0 % (0-2) Band Neutrophils 0 % (0-8) 0 % (0-8) Platelet Estimate Decreased L Decreased L Platelet Morphology Normal Normal Hypochromasia 1+ Anisocytosis 1+ 1+ Microcytosis 1+ 1+ Prothrombin Time 10.7 SEC (9.30-11.50) Prothromb Time International Ratio 1.0 (0.9-1.1) Activated Partial Thromboplast Time 30 SEC (23-33) D-Dimer 0.93 mg/L FEU (0.00-0.49) H Sodium Level 138 MMOL/L (136-145) 135 MMOL/L (136-145) L Potassium Level 4.7 MMOL/L (3.5-5.1) 4.1 MMOL/L (3.5-5.1) Chloride Level 105 MMOL/L (98-107) 101 MMOL/L (98-107) Carbon Dioxide Level 30 MMOL/L (21-32) 26 MMOL/L (21-32) Anion Gap 3 mmol/L (5-15) L 8 mmol/L (5-15) Blood Urea Nitrogen 32 mg/dL (7-18) H 27 mg/dL (7-18) H Creatinine 1.2 MG/DL (0.55-1.30) 1.2 MG/DL (0.55-1.30) Estimat Glomerular Filtration Rate 57.3 mL/min (>60) 57.3 mL/min (>60) Glucose Level 90 MG/DL (74-106) 132 MG/DL (74-106) H Lactic Acid Level 0.90 mmol/L (0.4-2.0) Calcium Level 8.4 MG/DL (8.5-10.1) L 8.3 MG/DL (8.5-10.1) L Ferritin 111 NG/ML (8-388) Total Bilirubin 0.3 MG/DL (0.2-1.0) 0.3 MG/DL (0.2-1.0) Aspartate Amino Transf (AST/SGOT) 24 U/L (15-37) 22 U/L (15-37) Alanine Aminotransferase (ALT/SGPT) 15 U/L (12-78) 13 U/L (12-78) Alkaline Phosphatase 81 U/L (46-116) 88 U/L (46-116) Lactate Dehydrogenase 173 U/L (81-234) Total Creatine Kinase 82 U/L (26-308) Creatine Kinase MB 2.1 NG/ML (0.0-3.6) Creatine Kinase MB Relative Index 2.5 Troponin I 0.025 ng/mL (0.000-0.056) C-Reactive Protein, Quantitative 2.1 mg/dL (0.00-0.90) H 1.8 mg/dL (0.00-0.90) H Pro-B-Type Natriuretic Peptide 360 pg/mL (0-125) H Total Protein 6.4 G/DL (6.4-8.2) 6.8 G/DL (6.4-8.2) Albumin 2.9 G/DL (3.4-5.0) L 2.9 G/DL (3.4-5.0) L Globulin 3.5 g/dL 3.9 g/dL Albumin/Globulin Ratio 0.8 (1.0-2.7) L 0.7 (1.0-2.7) L Lipase 235 U/L (73-393) Urine Color Yellow Urine Appearance Slightly cloudy Urine pH 6 (4.5-8.0) Urine Specific [place] 1.020 (1.005-1.035) Urine Protein 1+ (NEGATIVE) H Urine Glucose (UA) Negative (NEGATIVE) Urine Ketones Negative (NEGATIVE) Urine Blood Negative (NEGATIVE) Urine Nitrite Positive (NEGATIVE) H Urine Bilirubin Negative (NEGATIVE) Urine Urobilinogen Normal MG/DL (0.0-1.0) Urine Leukocyte Esterase 1+ (NEGATIVE) H Urine RBC 0-2 /HPF (0 - 0) H Urine WBC 5-10 /HPF (0 - 0) H Urine Squamous Epithelial Cells Occasional /LPF Urine Bacteria Many /HPF (NONE) H Erythrocyte Sedimentation Rate 18 MM/HR (0-20) Phosphorus Level 3.5 MG/DL (2.5-4.9) Magnesium Level 1.7 MG/DL (1.8-2.4) L Microbiology Date/Time Source Procedure Growth Status 04/27/20 07:10 Nasopharynx SARS-CoV-2 RdRp Gene Assay - Final Complete 04/26/20 18:00 Rectal Mucosa Received Height (Feet): 5 Height (Inches): 4.00 Weight (Pounds): 175 Medications Current Medications Medications (Trade) Dose Ordered Sig/Viktor Route PRN Reason Start Time Stop Time Status Last Admin Dose Admin Acetaminophen (Tylenol) 650 mg Q4H PRN ORAL fever 04/26/20 18:15 05/26/20 18:14 Albuterol/ Ipratropium (Albuterol/ Ipratropium) 3 ml Q4H PRN HHN Shortness of Breath 04/26/20 18:15 05/01/20 18:14 Ceftriaxone Sodium 1 gm/ Dextrose 55 ml @ 110 mls/hr Q24H IVPB 04/27/20 15:00 05/04/20 14:59 Levothyroxine Sodium (Synthroid) 112 mcg Q24H ORAL 04/27/20 06:30 05/27/20 06:29 04/27/20 07:21 Lisinopril (PriniviL) 20 mg DAILY ORAL 04/27/20 09:00 05/27/20 08:59 04/27/20 09:27 Ondansetron HCl (Zofran) 4 mg Q6H PRN IVP Nausea & Vomiting 04/26/20 18:15 05/26/20 18:14 Polyethylene Glycol (Miralax) 17 gm DAILYPRN PRN ORAL Constipation 04/26/20 18:15 05/26/20 18:14 Sertraline HCl (Zoloft) 50 mg DAILY ORAL 04/27/20 09:00 05/27/20 08:59 04/27/20 09:24 Tamsulosin HCl (Flomax) 0.4 mg DAILY ORAL 04/27/20 09:00 05/27/20 08:59 04/27/20 09:24 Temazepam (Restoril) 15 mg HSPRN PRN ORAL Insomnia 04/26/20 18:15 05/03/20 18:14 Assessment/Plan Problem List: (1) UTI (urinary tract infection) ICD Codes: N39.0 - Urinary tract infection, site not specified SNOMED: 51499675 (2) Pancytopenia ICD Codes: D61.818 - Other pancytopenia SNOMED: 749259493 (3) COVID-19 ICD Codes: U07.1 - COVID-19 SNOMED: 529727853 (4) History of hypertension ICD Codes: Z86.79 - Personal history of other diseases of the circulatory syst em SNOMED: 141961609 (5) History of CVA (cerebrovascular accident) ICD Codes: Z86.73 - Personal history of transient ischemic attack (TIA), and cerebral infarction without residual deficits SNOMED: 710289784 (6) Hx of endarterectomy ICD Codes: Z98.890 - Other specified postprocedural states SNOMED: 440361346 (7) Hx of CABG ICD Codes: Z95.1 - Presence of aortocoronary bypass graft SNOMED: 278685976, 208784449 Assessment/Plan: urine cultures iv abx covid isolation check inflammatory markers: CRP monitor BP resume old meds ID to see dvt prophylaxis Yumiko Valerio MD Apr 27, 2020 13:12
--- NOTE | 2020-04-27 13:19 | History & Physical ---
History and Physical History & Physicial Dictated for Int Med-Dr Oakley no. [id number] Alex Buchanan MD Apr 27, 2020 13:19
--- NOTE | 2020-04-27 13:26 | Pulmonology Progress Note ---
Subjective ROS Limited/Unobtainable: No Constitutional: Reports: no symptoms Allergies: Coded Allergies: No Known Allergies (Unverified , 05/30/14) Objective Last 24 Hour Vital Signs Date Time Temp Pulse Resp B/P (MAP) Pulse Ox O2 Delivery O2 Flow Rate FiO2 04/27/20 12:00 96.6 58 20 168/75 (106) 98 04/27/20 09:48 Room Air 04/27/20 09:27 186/80 04/27/20 09:06 97.7 60 16 140/71 100 Room Air 04/27/20 09:00 97.7 51 20 186/80 (115) 100 04/27/20 09:00 52 04/27/20 08:29 97.7 60 16 140/71 100 Room Air 04/27/20 06:40 97.7 59 16 144/73 100 Room Air 04/27/20 04:14 98.2 55 18 138/71 100 Room Air 04/27/20 02:04 98.0 53 16 143/78 100 Room Air 04/27/20 00:00 98.5 58 18 137/72 100 Room Air 04/26/20 22:15 98.5 63 18 148/76 100 Room Air 04/26/20 18:58 98.5 58 16 132/73 99 Room Air 04/26/20 16:00 54 16 121/99 100 Room Air 04/26/20 16:00 51 14 Room Air 04/26/20 14:35 97.9 52 16 152/80 (104) 98 Room Air Intake and Output0 04/26/20 04/27/20 19:00 07:00 Intake Total 290 ml 360 ml Balance 290 ml 360 ml Intake Oral 240 ml IV Total 50 ml 360 ml General Appearance: WD/WN HEENT: normocephalic, atraumatic Respiratory: chest wall non-tender Cardiovascular: normal peripheral pulses, normal rate Abdomen: normal bowel sounds, soft, non tender Genitourinary: normal external genitalia Skin: no rash 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 Lymphatic: no neck adenopathy Microbiology Date/Time Source Procedure Growth Status 04/27/20 07:10 Nasopharynx SARS-CoV-2 RdRp Gene Assay - Final Complete 04/26/20 18:00 Rectal Mucosa Received Laboratory Tests 04/26/20 15:56: White Blood Count 2.5L, Red Blood Count 5.47, Hemoglobin 11.6L, Hematocrit 35.6L , Mean Corpuscular Volume 65L, Mean Corpuscular Hemoglobin 21.3L, Mean Corpuscular Hemoglobin Concent 32.6, Red Cell Distribution Width 15.5H, Platelet Count 95L, Mean Platelet Volume 8.6, Neutrophils (%) (Auto) , Lymphocytes (%) (Auto) , Monocytes (%) (Auto) , Eosinophils (%) (Auto) , Basophils (%) (Auto) , Differential Total Cells Counted 100, Neutrophils % (Manual) 55, Lymphocytes % (Manual) 39, Monocytes % (Manual) 4, Eosinophils % (Manual) 2, Basophils % (Manual) 0, Band Neutrophils 0, Platelet Estimate DecreasedL, Platelet Morphology Normal, Hypochromasia 1+, Anisocytosis 1+, Microcytosis 1+, Prothrombin Time 10.7, Prothromb Time International Ratio 1.0, Activated Partial Thromboplast Time 30, D-Dimer 0.93H, Sodium Level 138, Potassium Level 4.7, Chloride Level 105, Carbon Dioxide Level 30, Anion Gap 3L, Blood Urea Nitrogen 32H, Creatinine 1.2, Estimat Glomerular Filtration Rate 57.3, Glucose Level 90, Lactic Acid Level 0.90, Calcium Level 8.4L, Ferritin 111, Total Bilirubin 0.3, Aspartate Amino Transf (AST/SGOT) 24, Alanine Aminotransferase (ALT/SGPT) 15, Alkaline Phosphatase 81, Lactate Dehydrogenase 173, Total Creatine Kinase 82, Creatine Kinase MB 2.1, Creatine Kinase MB Relative Index 2.5, Troponin I 0.025, C-Reactive Protein, Quantitative 2.1H, Pro-B-Type Natriuretic Peptide 360H, Total Protein 6.4, Albumin 2.9L, Globulin 3.5, Albumin/Globulin Ratio 0.8L, Lipase 235 04/26/20 16:28: Urine Color Yellow, Urine Appearance Slightly cloudy, Urine pH 6, Urine Specific [place] 1.020, Urine Protein 1+H, Urine Glucose (UA) Negative, Urine Ketones Negative, Urine Blood Negative, Urine Nitrite PositiveH, Urine Bilirubin Negative, Urine Urobilinogen Normal, Urine Leukocyte Esterase 1+H, Urine RBC 0- 2H, Urine WBC 5-10H, Urine Squamous Epithelial Cells Occasional, Urine Bacteria ManyH 12/23/20 04:45: White Blood Count 1.4*L, Red Blood Count 5.64, Hemoglobin 11.9L, Hematocrit 37.4L, Mean Corpuscular Volume 66L, Mean Corpuscular Hemoglobin 21.0L, Mean Corpuscular Hemoglobin Concent 31.7L, Red Cell Distribution Width 14.8, Platelet Count 97L, Mean Platelet Volume 8.6, Neutrophils (%) (Auto) , Lymphocytes (%) (Auto) , Monocytes (%) (Auto) , Eosinophils (%) (Auto) , Basophils (%) (Auto) , Differential Total Cells Counted 100, Neutrophils % (Manual) 75, Lymphocytes % (Manual) 20, Monocytes % (Manual) 5, Eosinophils % (Manual) 0, Basophils % (Manual) 0, Band Neutrophils 0, Platelet Estimate DecreasedL, Platelet Morphology Normal, Anisocytosis 1+, Microcytosis 1+, Sodium Level 135L, Potassium Level 4.1, Chloride Level 101, Carbon Dioxide Level 26, Anion Gap 8, Blood Urea Nitrogen 27H, Creatinine 1.2, Estimat Glomerular Filtration Rate 57.3, Glucose Level 132H, Calcium Level 8.3L, Total Bilirubin 0.3, Aspartate Amino Transf (AST/SGOT) 22, Alanine Aminotransferase (ALT/SGPT) 13, Alkaline Phosphatase 88, C-Reactive Protein, Quantitative 1.8H, Total Protein 6.8, Albumin 2.9L, Globulin 3.9, Albumin/Globulin Ratio 0.7L, Erythrocyte Sed imentation Rate 18, Phosphorus Level 3.5, Magnesium Level 1.7L, Thyroid Stimulating Hormone (TSH) [Pending], Free Thyroxine [Pending], Free Triiodothyronine [Pending] Current Medications Medications (Trade) Dose Ordered Sig/Viktor Route PRN Reason Start Time Stop Time Status Last Admin Dose Admin Acetaminophen (Tylenol) 650 mg Q4H PRN ORAL fever 04/26/20 18:15 05/26/20 18:14 Albuterol/ Ipratropium (Albuterol/ Ipratropium) 3 ml Q4H PRN HHN Shortness of Breath 04/26/20 18:15 05/01/20 18:14 Ceftriaxone Sodium 1 gm/ Dextrose 55 ml @ 110 mls/hr Q24H IVPB 04/27/20 15:00 05/04/20 14:59 Levothyroxine Sodium (Synthroid) 112 mcg Q24H ORAL 04/27/20 06:30 05/27/20 06:29 04/27/20 07:21 Lisinopril (PriniviL) 20 mg DAILY ORAL 04/27/20 09:00 05/27/20 08:59 04/27/20 09:27 Ondansetron HCl (Zofran) 4 mg Q6H PRN IVP Nausea & Vomiting 04/26/20 18:15 05/26/20 18:14 Polyethylene Glycol (Miralax) 17 gm DAILYPRN PRN ORAL Constipation 04/26/20 18:15 05/26/20 18:14 Sertraline HCl (Zoloft) 50 mg DAILY ORAL 04/27/20 09:00 05/27/20 08:59 04/27/20 09:24 Tamsulosin HCl (Flomax) 0.4 mg DAILY ORAL 04/27/20 09:00 05/27/20 08:59 04/27/20 09:24 Temazepam (Restoril) 15 mg HSPRN PRN ORAL Insomnia 04/26/20 18:15 05/03/20 18:14 Assessment/Plan Problems: (1) UTI (urinary tract infection) (2) Pancytopenia (3) COVID-19 (4) History of hypertension (5) History of CVA (cerebrovascular accident) (6) Hx of endarterectomy (7) Hx of CABG (8) Hypothyroidism Assessment/Plan urine cultures iv abx, on ceftriaxone now watch wbc, reverse isolation now covid isolation check inflammatory markers: CRP monitor BP resume old meds ID to see dvt prophylaxis Yumiko Valerio MD Apr 27, 2020 13:26
[2020-04-27] MEDS: Lisinopril 20mg tab ORAL SCH (13:31)
[2020-04-27 13:50] LABS: APPEARANCE,URINE CLEAR; BILIRUBIN, URINE NEGATIVE (NEGATIVE); COLOR,URINE PALE YELLOW; GLUCOSE, URINE (UA) NEGATIVE (NEGATIVE); KETONES,URINE NEGATIVE (NEGATIVE); LEUKOCYTE ESTERASE ,URINE NEGATIVE (NEGATIVE); NITRITE,URINE NEGATIVE (NEGATIVE); PH,URINE 6 (4.5-8.0); PROTEIN,URINE NEGATIVE (NEGATIVE); UROBILINOGEN,URINE NORMAL MG/DL (0.0-1.0)
--- NOTE | 2020-04-27 13:50 | Cardiac Electrophysiology PN ---
Subjective Subjective [id number] Objective Last 24 Hour Vital Signs Date Time Temp Pulse Resp B/P (MAP) Pulse Ox O2 Delivery O2 Flow Rate FiO2 04/27/20 13:31 168/75 04/27/20 12:00 96.6 58 20 168/75 (106) 98 04/27/20 09:48 Room Air 04/27/20 09:27 186/80 04/27/20 09:06 97.7 60 16 140/71 100 Room Air 04/27/20 09:00 97.7 51 20 186/80 (115) 100 04/27/20 09:00 52 04/27/20 08:29 97.7 60 16 140/71 100 Room Air 04/27/20 06:40 97.7 59 16 144/73 100 Room Air 04/27/20 04:14 98.2 55 18 138/71 100 Room Air 04/27/20 02:04 98.0 53 16 143/78 100 Room Air 04/27/20 00:00 98.5 58 18 137/72 100 Room Air 04/26/20 22:15 98.5 63 18 148/76 100 Room Air 04/26/20 18:58 98.5 58 16 132/73 99 Room Air 04/26/20 16:00 54 16 121/99 100 Room Air 04/26/20 16:00 51 14 Room Air 04/26/20 14:35 97.9 52 16 152/80 (104) 98 Room Air Intake and Output 04/26/20 04/27/20 19:00 07:00 Intake Total 290 ml 360 ml Balance 290 ml 360 ml Intake Oral 240 ml IV Total 50 ml 360 ml Laboratory Tests Test 04/26/20 15:56 04/26/20 16:28 04/27/20 04:45 04/27/20 13:30 White Blood Count 2.5 K/UL (4.8-10.8) L 1.4 K/UL (4.8-10.8) *L Red Blood Count 5.47 M/UL (4.70-6.10) 5.64 M/UL (4.70-6.10) Hemoglobin 11.6 G/DL (14.2-18.0) L 11.9 G/DL (14.2-18.0) L Hematocrit 35.6 % (42.0-52.0) L 37.4 % (42.0-52.0) L Mean Corpuscular Volume 65 FL (80-99) L 66 FL (80-99) L Mean Corpuscular Hemoglobin 21.3 PG (27.0-31.0) L 21.0 PG (27.0-31.0) L Mean Corpuscular Hemoglobin Concent 32.6 G/DL (32.0-36.0) 31.7 G/DL (32.0-36.0) L Red Cell Distribution Width 15.5 % (11.6-14.8) H 14.8 % (11.6-14.8) Platelet Count 95 K/UL (150-450) L 97 K/UL (150-450) L Mean Platelet Volume 8.6 FL (6.5-10.1) 8.6 FL (6.5-10.1) Neutrophils (%) (Auto) % (45.0-75.0) % (45.0-75.0) Lymphocytes (%) (Auto) % (20.0-45.0) % (20.0-45.0) Monocytes (%) (Auto) % (1.0-10.0) % (1.0-10.0) Eosinophils (%) (Auto) % (0.0-3.0) % (0.0-3.0) Basophils (%) (Auto) % (0.0-2.0) % (0.0-2.0) Differential Total Cells Counted 100 100 Neutrophils % (Manual) 55 % (45-75) 75 % (45-75) Lymphocytes % (Manual) 39 % (20-45) 20 % (20-45) Monocytes % (Manual) 4 % (1-10) 5 % (1-10) Eosinophils % (Manual) 2 % (0-3) 0 % (0-3) Basophils % (Manual) 0 % (0-2) 0 % (0-2) Band Neutrophils 0 % (0-8) 0 % (0-8) Platelet Estimate Decreased L Decreased L Platelet Morphology Normal Normal Hypochromasia 1+ Anisocytosis 1+ 1+ Microcytosis 1+ 1+ Prothrombin Time 10.7 SEC (9.30-11.50) Prothromb Time International Ratio 1.0 (0.9-1.1) Activated Partial Thromboplast Time 30 SEC (23-33) D-Dimer 0.93 mg/L FEU (0.00-0.49) H Sodium Level 138 MMOL/L (136-145) 135 MMOL/L (136-145) L Potassium Level 4.7 MMOL/L (3.5-5.1) 4.1 MMOL/L (3.5-5.1) Chloride Level 105 MMOL/L (98-107) 101 MMOL/L (98-107) Carbon Dioxide Level 30 MMOL/L (21-32) 26 MMOL/L (21-32) Anion Gap 3 mmol/L (5-15) L 8 mmol/L (5-15) Blood Urea Nitrogen 32 mg/dL (7-18) H 27 mg/dL (7-18) H Creatinine 1.2 MG/DL (0.55-1.30) 1.2 MG/DL (0.55-1.30) Estimat Glomerular Filtration Rate 57.3 mL/min (>60) 57.3 mL/min (>60) Glucose Level 90 MG/DL (74-106) 132 MG/DL (74-106) H Lactic Acid Level 0.90 mmol/L (0.4-2.0) Calcium Level 8.4 MG/DL (8.5-10.1) L 8.3 MG/DL (8.5-10.1) L Ferritin 111 NG/ML (8-388) Total Bilirubin 0.3 MG/DL (0.2-1.0) 0.3 MG/DL (0.2-1.0) Aspartate Amino Transf (AST/SGOT) 24 U/L (15-37) 22 U/L (15-37) Alanine Aminotransferase (ALT/SGPT) 15 U/L (12-78) 13 U/L (12-78) Alkaline Phosphatase 81 U/L (46-116) 88 U/L (46-116) Lactate Dehydrogenase 173 U/L (81-234) Total Creatine Kinase 82 U/L (26-308) Creatine Kinase MB 2.1 NG/ML (0.0-3.6) Creatine Kinase MB Relative Index 2.5 Troponin I 0.025 ng/mL (0.000-0.056) C-Reactive Protein, Quantitative 2.1 mg/dL (0.00-0.90) H 1.8 mg/dL (0.00-0.90) H Pro-B-Type Natriuretic Peptide 360 pg/mL (0-125) H Total Protein 6.4 G/DL (6.4-8.2) 6.8 G/DL (6.4-8.2) Albumin 2.9 G/DL (3.4-5.0) L 2.9 G/DL (3.4-5.0) L Globulin 3.5 g/dL 3.9 g/dL Albumin/Globulin Ratio 0.8 (1.0-2.7) L 0.7 (1.0-2.7) L Lipase 235 U/L (73-393) Urine Color Yellow Pending Urine Appearance Slightly cloudy Pending Urine pH 6 (4.5-8.0) Pending Urine Specific [place] 1.020 (1.005-1.035) Pending Urine Protein 1+ (NEGATIVE) H Pending Urine Glucose (UA) Negative (NEGATIVE) Pending Urine Ketones Negative (NEGATIVE) Pending Urine Blood Negative (NEGATIVE) Pending Urine Nitrite Positive (NEGATIVE) H Pending Urine Bilirubin Negative (NEGATIVE) Pending Urine Urobilinogen Normal MG/DL (0.0-1.0) Pending Urine Leukocyte Esterase 1+ (NEGATIVE) H Pending Urine RBC 0-2 /HPF (0 - 0) H Pending Urine WBC 5-10 /HPF (0 - 0) H Pending Urine Squamous Epithelial Cells Occasional /LPF Pending Urine Bacteria Many /HPF (NONE) H Pending Erythrocyte Sedimentation Rate 18 MM/HR (0-20) Phosphorus Level 3.5 MG/DL (2.5-4.9) Magnesium Level 1.7 MG/DL (1.8-2.4) L Thyroid Stimulating Hormone (TSH) 1.418 uiU/mL (0.358-3.740) Free Thyroxine Pending Free Triiodothyronine 1.4 pg/mL (2.3-4.2) L Microbiology Date/Time Source Procedure Growth Status 04/27/20 07:10 Nasopharynx SARS-CoV-2 RdRp Gene Assay - Final Complete 04/26/20 18:00 Rectal Mucosa Received Jl Scott MD Apr 27, 2020 13:50
[2020-04-27] MEDS: cefTRIAXone 1 GM in D5W 55 ML IVPB SCH (15:06)
--- NOTE | 2020-04-27 15:44 | History and Physical Report ---
DATE OF ADMISSION: 04/26/2020 CHIEF COMPLAINT: The patient is an 89-year-old male who presents with a chief complaint of generalized weakness. HISTORY OF PRESENT ILLNESS: The patient is a resident of [facility]. The patient tested COVID positive one day prior to admission at the [facility] living facility. The patient presented to [facility] complaining of generalized weakness. The patient denied fevers, chills, or shortness of breath. The patient was found to have urinary tract infection. The patient is admitted with urinary tract infection and COVID-19 positive. REVIEW OF SYSTEMS: CONSTITUTIONAL: The patient denies weight loss or weight gain. The patient denies fevers or chills. HEENT: The patient denies ear or throat pain. The patient denies headache. CARDIOVASCULAR: The patient denies palpitations or chest pain. CHEST: The patient denies wheeze or shortness of breath. ABDOMEN: The patient denies nausea, vomiting, diarrhea, or constipation. GENITOURINARY: The patient denies dysuria or increased frequency of urination. NEUROMUSCULAR: The patient complains of generalized weakness as above. The patient denies seizures. PAST MEDICAL HISTORY: Significant for: 1. Hypertension. 2. Benign prostatic hypertrophy. 3. Hypothyroidism. 4. Diverticulosis. 5. Hypercholesterolemia. PAST SURGICAL HISTORY: The patient denies. CURRENT MEDICATIONS: 1. Fish oil 1000 mg one tablet p.o. twice daily. 2. Levoxyl 0.112 mg p.o. daily. 3. Lisinopril 20 mg p.o. daily. 4. Claritin 10 mg p.o. daily. 5. Omeprazole 20 mg p.o. daily. 6. Exelon 1.5 mg p.o. twice daily. 7. Simvastatin 20 mg p.o. daily. 8. Tamsulosin 0.4 mg p.o. daily. 9. Vitamin D3 50,000 units p.o. weekly. ALLERGIES: No known drug allergies. SOCIAL HISTORY: The patient is single and is a resident of [facility]. The patient denies tobacco or alcohol use. PHYSICAL EXAMINATION: VITAL SIGNS: Temperature 97.9, respirations 16, pulse 52, blood pressure 152/88. Pulse oximetry 98% on room air. GENERAL: The patient is a well-developed and well-nourished male, in no apparent distress. HEENT: Eyes, pupils are equal and responsive to light and accommodation. Extraocular movements are intact. NECK: Supple without lymphadenopathy. CHEST: Lungs are clear to auscultation bilaterally without wheezes or rales. CARDIOVASCULAR: Regular rate. S1, S2 normal without murmurs, rubs, or gallops. ABDOMEN: Soft, nontender, nondistended. Positive bowel sounds. No hepatosplenomegaly. Currently, no rebound or guarding noted. EXTREMITIES: Negative for clubbing, cyanosis, or edema. RECTAL/GENITAL: Not performed. NEUROLOGIC: Cranial nerves II through XII grossly intact without focal deficits. LABORATORY STUDIES: WBC 2.5, hemoglobin 11.6, hematocrit 35.6, platelets 95,000. Sodium 138, potassium 4.7, chloride 105, CO2 30, BUN 32, creatinine 1.2. Glucose 90. Urinalysis showed 1+ protein, positive nitrite, with 5 to 10 wbc's. Chest x-ray was reported as no acute disease. ASSESSMENT: This is an 89-year-old male with: 1. Generalized weakness. 2. Urinary tract infection. 3. COVID-19 positive. 4. Hypertension. 5. Benign prostatic hypertrophy. 6. Hypothyroidism. 7. Hypercholesterolemia. 8. Diverticulosis. TREATMENT: 1. Generalized weakness. This may be secondary to urinary tract infection versus COVID-19 pneumonia. 2. Urinary tract infection. The patient has been started empirically on intravenous ceftriaxone and vancomycin. A urine culture is pending. 3. COVID-19 positive. An Infectious Disease consultation has been obtained with Dr. Scott and Dr. Lanier. The patient has been started on Decadron. We will follow recommendations of Infectious Disease. A Pulmonary consultation has been obtained with Dr. Yumiko Valerio. 4. Hypertension. The patient is currently hypotensive. Hold lisinopril. 5. Benign prostatic hypertrophy. Continue Flomax as above. 6. Hypothyroidism. Continue Synthroid as above. 7. Hypercholesterolemia. Continue simvastatin as above. 8. Diverticulosis. Alex Buchanan M.D. DR: ALLIE JOB#: [id number] CC:
--- NOTE | 2020-04-27 17:00 | Consultation ---
DATE OF CONSULTATION: 04/27/2020 CARDIOLOGY CONSULTATION REFERRING PHYSICIAN: Alex Buchanan M.D. ADDITIONAL REFERRING PHYSICIAN: Rudy Oakley M.D. REASON FOR CONSULTATION: Bradycardia, cardiac arrhythmia, and PVCs in a patient with history of coronary artery bypass graft. HISTORY OF PRESENT ILLNESS: The patient is a very pleasant 89-year-old gentleman with history of hypertension and coronary artery disease with history of coronary artery bypass graft more than 10 years ago, with a history of CVA, who was brought to the emergency room from an assisted living for increased weakness and repeated falls. The patient was tested positive for COVID-19 at the snf. Also was found to have urinary tract infection. On telemetry, the patient has had bradycardia with heart rate dropping to 30s and also had PVCs. Cardiac electrophysiology consultation was obtained for further evaluation. REVIEW OF SYSTEMS: Negative other than what was mentioned in the history of present illness. At the time of my evaluation, the patient is fully alert and oriented. Denies any chest pain or shortness of breath. He is currently on room air. PAST MEDICAL HISTORY: As mentioned above. FAMILY HISTORY: Noncontributory. MEDICATIONS.: Per reconciliation. SOCIAL HISTORY: He lives in an assisted living. Does not smoke or drink alcohol. PAST SURGICAL HISTORY: Coronary artery bypass graft and history of endarterectomy. PHYSICAL EXAMINATION: VITAL SIGNS: Blood pressure was as high as 186/80, pulse is 51, respirations 18, and temperature 96.6. HEAD AND NECK: No JVD. LUNGS: Clear. CARDIOVASCULAR: Regular S1 and S2, bradycardic. Status post sternotomy. ABDOMEN: Soft. EXTREMITIES: No pitting edema. LABORATORY AND DIAGNOSTIC DATA: His labs show white count of 1.4, hemoglobin 11.9, platelet count of 97. Sodium is 135, potassium is 4.1, BUN of 27, creatinine 1.2, and glucose of 132. First troponin is negative. T4, TSH, and T3 are pending. ASSESSMENT AND PLAN: 1. Sinus bradycardia, heart rate down to 30s. No evidence of heart block. The patient is off of any sinus or QL-[id number] agents. Thyroid function test is pending. The patient is already on Synthroid. Echocardiogram is also pending. 2. History of coronary artery bypass graft, off beta-best in view of bradycardia. Denies any chest pain. He is not on aspirin in view of thrombocytopenia with platelet count of 97, but may benefit from Lipitor. 3. Leukopenia with white count of 1.4, could be due to the patient's COVID. 4. Status post carotid endarterectomy. 5. COVID. 6. UTI. 7. Hypertension, on lisinopril 40 mg daily. 8. History of benign prostatic hypertrophy, on Flomax. 9. Depression, on Zoloft. Thank you very much for allowing me to participate in the care of this patient. Please do not hesitate to contact me for any questions regarding my evaluation. Jl Scott M.D. DR: ALEKS JOB#: [id number] CC:
[2020-04-27] MEDS: Exelon 1.5mg cap ORAL SCH (17:28)
[2020-04-28] VITALS: BP 115/74
[2020-04-28 04:00] VITALS: BP 124/77
[2020-04-28] MEDS ORDERED: Vancomycin 1 GM in NS 275 ML IVPB SCH (05:00)
[2020-04-28 07:36] LABS: ALANINE AMINOTRANSFERASE 17 U/L (12-78); ALBUMIN/GLOBULIN RATIO 0.8 (1.0-2.7); ALKALINE PHOSPHATASE 84 U/L (46-116); ANION GAP 7 mmol/L (5-15); ASPARTATE AMINO TRANSFERASE 34 U/L (15-37); BILIRUBIN,TOTAL 0.3 MG/DL (0.2-1.0); BLOOD UREA NITROGEN 22 mg/dL (7-18); CALCIUM 8.2 MG/DL (8.5-10.1); CARBON DIOXIDE 29 MMOL/L (21-32); CHLORIDE 103 MMOL/L (98-107); CREATININE 1.1 MG/DL (0.55-1.30); PHOSPHORUS 3.1 MG/DL (2.5-4.9); SODIUM 139 MMOL/L (136-145)
[2020-04-28 08:00] VITALS: BP 189/60
--- NOTE | 2020-04-28 08:24 | Infectious Diseases Prog Note ---
Assessment/Plan 89yo M with: COVID pna Leukopenic Satting well on RA 04/26 COVID rapid positive CXR: No acute process BCx NTD UA 5-10 WBC, UCx p Cr 1.2 Thrombocytopenia, plts in 90s SNF resident Plan: Cont CTX 1g IV daily #3/5, ok to d/c home on keflex 500mg PO QID to complete rest of course for possible UTI Monitor off steroids as pt doing well on RA Not candidate for RDV at this time as doing well on RA F/u BCx, UCx Monitor CBC/CMP Monitor temp curve, hemodynamics Monitor resp status COVID isolation D/w RN and Dr. Valerio Thank you for this consult. [facility] will continue to follow. Subjective Allergies: Coded Allergies: No Known Allergies (Unverified , 05/30/14) AF NAD on RA Doing well WBC 4.0 Objective Last 24 Hour Vital Signs Date Time Temp Pulse Resp B/P (MAP) Pulse Ox O2 Delivery O2 Flow Rate FiO2 04/28/20 04:00 59 04/28/20 04:00 98.1 62 20 124/77 (93) 96 04/28/20 00:00 97.8 62 17 115/74 (88) 96 04/28/20 00:00 105 04/27/20 21:00 Room Air 04/27/20 20:00 65 04/27/20 20:00 98.1 64 16 111/78 (89) 96 04/27/20 16:00 98.8 51 19 126/72 (90) 96 04/27/20 16:00 60 04/27/20 13:31 168/75 04/27/20 12:00 69 04/27/20 12:00 96.6 58 20 168/75 (106) 98 04/27/20 09:48 Room Air 04/27/20 09:27 186/80 04/27/20 09:11 39 04/27/20 09:08 45 04/27/20 09:06 97.7 60 16 140/71 100 Room Air 04/27/20 09:00 97.7 51 20 186/80 (115) 100 04/27/20 09:00 52 04/27/20 08:29 97.7 60 16 140/71 100 Room Air Height (Feet): 5 Height (Inches): 4.00 Weight (Pounds): 155 Gen: NAD HEENT: NCAT Pulm: BL chest rise Abd: Non-distended Ext: No c/c/e Skin: No visible rashes Neuro: Awake Microbiology Date/Time Source Procedure Growth Status 04/27/20 07:10 Nasopharynx SARS-CoV-2 RdRp Gene Assay - Final Complete 04/26/20 18:00 Rectum - Final NO CARBAPENEM-RESISTANT ENTEROBACTERI... Complete 04/26/20 18:00 Rectal Mucosa VRE Culture - Final NO VANCOMYCIN RESISTANT ENTEROCOCCUS ... Complete 04/26/20 18:00 Blood Blood Culture - Preliminary NO GROWTH AFTER 24 HOURS Resulted 04/26/20 15:55 Blood Blood Culture - Preliminary NO GROWTH AFTER 24 HOURS Resulted Laboratory Tests Test 04/27/20 13:30 04/28/20 05:52 Urine Color Pale yellow Urine Appearance Clear Urine pH 6 (4.5-8.0) Urine Specific [place] 1.010 (1.005-1.035) Urine Protein Negative (NEGATIVE) Urine Glucose (UA) Negative (NEGATIVE) Urine Ketones Negative (NEGATIVE) Urine Blood Negative (NEGATIVE) Urine Nitrite Negative (NEGATIVE) Urine Bilirubin Negative (NEGATIVE) Urine Urobilinogen Normal MG/DL (0.0-1.0) Urine Leukocyte Esterase Negative (NEGATIVE) Urine RBC 0 /HPF (0 - 0) Urine WBC 0 /HPF (0 - 0) Urine Squamous Epithelial Cells Occasional /LPF Urine Bacteria None /HPF (NONE) White Blood Count Pending Red Blood Count Pending Hemoglobin Pending Hematocrit Pending Mean Corpuscular Volume Pending Mean Corpuscular Hemoglobin Pending Mean Corpuscular Hemoglobin Concent Pending Red Cell Distribution Width Pending Platelet Count Pending Mean Platelet Volume Pending Neutrophils (%) (Auto) Pending Lymphocytes (%) (Auto) Pending Monocytes (%) (Auto) Pending Eosinophils (%) (Auto) Pending Basophils (%) (Auto) Pending Erythrocyte Sedimentation Rate Pending Sodium Level 139 MMOL/L (136-145) Potassium Level 4.0 MMOL/L (3.5-5.1) Chloride Level 103 MMOL/L (98-107) Carbon Dioxide Level 29 MMOL/L (21-32) Anion Gap 7 mmol/L (5-15) Blood Urea Nitrogen 22 mg/dL (7-18) H Creatinine 1.1 MG/DL (0.55-1.30) Estimat Glomerular Filtration Rate > 60 mL/min (>60) Glucose Level 70 MG/DL (74-106) L Calcium Level 8.2 MG/DL (8.5-10.1) L Phosphorus Level 3.1 MG/DL (2.5-4.9) Magnesium Level 1.8 MG/DL (1.8-2.4) Total Bilirubin 0.3 MG/DL (0.2-1.0) Aspartate Amino Transf (AST/SGOT) 34 U/L (15-37) Alanine Aminotransferase (ALT/SGPT) 17 U/L (12-78) Alkaline Phosphatase 84 U/L (46-116) Troponin I 0.146 ng/mL (0.000-0.056) C-Reactive Protein, Quantitative 0.9 mg/dL (0.00-0.90) Total Protein 6.6 G/DL (6.4-8.2) Albumin 3.0 G/DL (3.4-5.0) L Globulin 3.6 g/dL Albumin/Globulin Ratio 0.8 (1.0-2.7) L Current Medications Medications (Trade) Dose Ordered Sig/Viktor Route PRN Reason Start Time Stop Time Status Last Admin Dose Admin Acetaminophen (Tylenol) 650 mg Q4H PRN ORAL fever 04/26/20 18:15 05/26/20 18:14 Albuterol/ Ipratropium (Albuterol/ Ipratropium) 3 ml Q4H PRN HHN Shortness of Breath 04/26/20 18:15 05/01/20 18:14 Ceftriaxone Sodium 1 gm/ Dextrose 55 ml @ 110 mls/hr Q24H IVPB 04/27/20 15:00 05/04/20 14:59 04/27/20 15:06 Levothyroxine Sodium (Synthroid) 112 mcg Q24H ORAL 04/27/20 06:30 05/27/20 06:29 04/27/20 07:21 Lisinopril (PriniviL) 40 mg DAILY ORAL 04/27/20 13:15 05/27/20 08:59 04/27/20 13:31 Ondansetron HCl (Zofran) 4 mg Q6H PRN IVP Nausea & Vomiting 04/26/20 18:15 05/26/20 18:14 Polyethylene Glycol (Miralax) 17 gm DAILYPRN PRN ORAL Constipation 04/26/20 18:15 05/26/20 18:14 Rivastigmine Tartrate (Exelon) 1.5 mg TWICE A DAY ORAL 04/27/20 18:00 05/27/20 17:59 04/27/20 17:28 Sertraline HCl (Zoloft) 50 mg DAILY ORAL 04/27/20 09:00 05/27/20 08:59 04/27/20 09:24 Sodium Chloride 1,000 ml @ 50 mls/hr Q20H IV 04/27/20 13:15 05/27/20 13:14 04/27/20 13:30 Tamsulosin HCl (Flomax) 0.4 mg DAILY ORAL 04/27/20 09:00 05/27/20 08:59 04/27/20 09:24 Temazepam (Restoril) 15 mg HSPRN PRN ORAL Insomnia 04/26/20 18:15 05/03/20 18:14 Lesley Lanier M.D. Apr 28, 2020 08:24
[2020-04-28 08:30] LABS: BASOPHILS % (AUTO) 0.4 % (0.0-2.0); EOSINOPHILS % (AUTO) 0.3 % (0.0-3.0); HEMATOCRIT 37.4 % (42.0-52.0); HEMOGLOBIN 11.8 G/DL (14.2-18.0); LYMPHOCYTES % (AUTO) 13.7 % (20.0-45.0); MEAN CORPUSCULAR VOLUME 66 FL (80-99); MONOCYTES % (AUTO) 8.4 % (1.0-10.0); NEUTROPHILS % (AUTO) 77.1 % (45.0-75.0); PLATELET COUNT 125 K/UL (150-450); RED BLOOD COUNT 5.64 M/UL (4.70-6.10); RED CELL DISTRIBUTION WIDTH 15.2 % (11.6-14.8)
[2020-04-28] MEDS: Lisinopril 20mg tab ORAL SCH ×2 (09:00→09:18)
[2020-04-28] MEDS: Sertraline 50mg tab ORAL SCH ×2 (09:00→09:18)
[2020-04-28] MEDS: Exelon 1.5mg cap ORAL SCH ×3 (09:00→18:00)
[2020-04-28] MEDS: Tamsulosin 0.4mg cap ORAL SCH ×2 (09:00→09:18)
[2020-04-28] MEDS ORDERED: CEPHALEXIN500 MG ORAL (10:24)
[2020-04-28 11:55] VITALS: BP 164/86
--- NOTE | 2020-04-28 12:20 | Cardiac Electrophysiology PN ---
Assessment/Plan Assessment/Plan 1. Sinus bradycardia, heart rate down to 30s. No evidence of heart block. The patient is off of any sinus or ID-gnkll-azudpkzug agents. The patient is already on Synthroid. Echocardiogram is also pending. 2. Troponin leak and history of coronary artery bypass graft, off beta-best in view of bradycardia. Denies any chest pain. He is not on aspirin in view of thrombocytopenia with platelet count of 97, but may benefit from Lipitor. Refusing meds and even monitor. ECho pending. Refusing further lab work. 3. Leukopenia with white count of 1.4, could be due to the patient's COVID. 4. Status post carotid endarterectomy. 5. COVID. 6. UTI.On Ceftriaxone 7. Hypertension, on lisinopril 40 mg daily. 8. History of benign prostatic hypertrophy, on Flomax. 9. Depression, on Zoloft. ZANE RN Subjective Subjective Refusing meds and refusing tele. In Covid isolation on room Air in NAD Objective Last 24 Hour Vital Signs Date Time Temp Pulse Resp B/P (MAP) Pulse Ox O2 Delivery O2 Flow Rate FiO2 04/28/20 11:55 98.4 73 20 164/86 (112) 99 04/28/20 09:32 70 04/28/20 09:00 189/60 04/28/20 09:00 Room Air 04/28/20 08:00 97.9 73 20 189/60 (103) 97 04/28/20 04:00 59 04/28/20 04:00 98.1 62 20 124/77 (93) 96 04/28/20 00:00 97.8 62 17 115/74 (88) 96 04/28/20 00:00 105 04/27/20 21:00 Room Air 04/27/20 20:00 65 04/27/20 20:00 98.1 64 16 111/78 (89) 96 04/27/20 16:00 98.8 51 19 126/72 (90) 96 04/27/20 16:00 60 04/27/20 13:31 168/75 Intake and Output 04/27/20 04/28/20 19:00 07:00 Intake Total 450 ml 240 ml Output Total 1200 ml 500 ml Balance -750 ml -260 ml Intake Oral 140 ml 240 ml IV Total 310 ml Output Urine Total 1200 ml 500 ml # Voids 3 4 Laboratory Tests Test 04/27/20 13:30 04/28/20 05:52 Urine Color Pale yellow Urine Appearance Clear Urine pH 6 (4.5-8.0) Urine Specific [place] 1.010 (1.005-1.035) Urine Protein Negative (NEGATIVE) Urine Glucose (UA) Negative (NEGATIVE) Urine Ketones Negative (NEGATIVE) Urine Blood Negative (NEGATIVE) Urine Nitrite Negative (NEGATIVE) Urine Bilirubin Negative (NEGATIVE) Urine Urobilinogen Normal MG/DL (0.0-1.0) Urine Leukocyte Esterase Negative (NEGATIVE) Urine RBC 0 /HPF (0 - 0) Urine WBC 0 /HPF (0 - 0) Urine Squamous Epithelial Cells Occasional /LPF Urine Bacteria None /HPF (NONE) White Blood Count 4.0 K/UL (4.8-10.8) #L Red Blood Count 5.64 M/UL (4.70-6.10) Hemoglobin 11.8 G/DL (14.2-18.0) L Hematocrit 37.4 % (42.0-52.0) L Mean Corpuscular Volume 66 FL (80-99) L Mean Corpuscular Hemoglobin 21.0 PG (27.0-31.0) L Mean Corpuscular Hemoglobin Concent 31.7 G/DL (32.0-36.0) L Red Cell Distribution Width 15.2 % (11.6-14.8) H Platelet Count 125 K/UL (150-450) L Mean Platelet Volume 13.3 FL (6.5-10.1) H Neutrophils (%) (Auto) 77.1 % (45.0-75.0) H Lymphocytes (%) (Auto) 13.7 % (20.0-45.0) L Monocytes (%) (Auto) 8.4 % (1.0-10.0) Eosinophils (%) (Auto) 0.3 % (0.0-3.0) Basophils (%) (Auto) 0.4 % (0.0-2.0) Erythrocyte Sedimentation Rate 14 MM/HR (0-20) Sodium Level 139 MMOL/L (136-145) Potassium Level 4.0 MMOL/L (3.5-5.1) Chloride Level 103 MMOL/L (98-107) Carbon Dioxide Level 29 MMOL/L (21-32) Anion Gap 7 mmol/L (5-15) Blood Urea Nitrogen 22 mg/dL (7-18) H Creatinine 1.1 MG/DL (0.55-1.30) Estimat Glomerular Filtration Rate > 60 mL/min (>60) Glucose Level 70 MG/DL (74-106) L Calcium Level 8.2 MG/DL (8.5-10.1) L Phosphorus Level 3.1 MG/DL (2.5-4.9) Magnesium Level 1.8 MG/DL (1.8-2.4) Total Bilirubin 0.3 MG/DL (0.2-1.0) Aspartate Amino Transf (AST/SGOT) 34 U/L (15-37) Alanine Aminotransferase (ALT/SGPT) 17 U/L (12-78) Alkaline Phosphatase 84 U/L (46-116) Troponin I 0.146 ng/mL (0.000-0.056) C-Reactive Protein, Quantitative 0.9 mg/dL (0.00-0.90) Total Protein 6.6 G/DL (6.4-8.2) Albumin 3.0 G/DL (3.4-5.0) L Globulin 3.6 g/dL Albumin/Globulin Ratio 0.8 (1.0-2.7) L Microbiology Date/Time Source Procedure Growth Status 04/27/20 07:10 Nasopharynx SARS-CoV-2 RdRp Gene Assay - Final Complete 04/26/20 18:00 Rectum - Final NO CARBAPENEM-RESISTANT ENTEROBACTERI... Complete 04/26/20 18:00 Rectal Mucosa VRE Culture - Final NO VANCOMYCIN RESISTANT ENTEROCOCCUS ... Complete 04/26/20 18:00 Blood Blood Culture - Preliminary NO GROWTH AFTER 24 HOURS Resulted 04/26/20 15:55 Blood Blood Culture - Preliminary NO GROWTH AFTER 24 HOURS Resulted Objective HEAD AND NECK: No JVD. LUNGS: Clear. CARDIOVASCULAR: Regular S1 and S2, bradycardic. Status post sternotomy. ABDOMEN: Soft. EXTREMITIES: No pitting edema. Jl Scott MD Apr 28, 2020 12:20
[2020-04-28] MEDS ORDERED: FISH OIL CAP1000 MG ORAL (13:46)
[2020-04-28] MEDS ORDERED: VITAMIN D3250 MCG PO (13:59)
[2020-04-28] MEDS ORDERED: LIDODERM700 M1 TOPIC (14:08)
[2020-04-28] MEDS ORDERED: TRIAMCINOLONE A15 GM TP (14:14)
[2020-04-28] MEDS ORDERED: HYDROCORTISO453.6 G1 TP (14:14)
[2020-04-28] MEDS ORDERED: VOLTAREN100 G1 TP (14:14)
[2020-04-28] MEDS: cefTRIAXone 1 GM in D5W 55 ML IVPB SCH (15:00)
--- NOTE | 2020-04-28 15:01 | Internal Med Progress Note ---
Subjective Physician Name Rudy Oakley Attending Physician Rudy Oakley MD Current Medications Medications (Trade) Dose Ordered Sig/Viktor Route PRN Reason Start Time Stop Time Status Last Admin Dose Admin Acetaminophen (Tylenol) 650 mg Q4H PRN ORAL fever 04/26/20 18:15 05/26/20 18:14 Albuterol/ Ipratropium (Albuterol/ Ipratropium) 3 ml Q4H PRN HHN Shortness of Breath 04/26/20 18:15 05/01/20 18:14 Ceftriaxone Sodium 1 gm/ Dextrose 55 ml @ 110 mls/hr Q24H IVPB 04/27/20 15:00 05/04/20 14:59 04/27/20 15:06 Levothyroxine Sodium (Synthroid) 112 mcg Q24H ORAL 04/27/20 06:30 05/27/20 06:29 04/27/20 07:21 Lisinopril (PriniviL) 40 mg DAILY ORAL 04/27/20 13:15 05/27/20 08:59 04/27/20 13:31 Ondansetron HCl (Zofran) 4 mg Q6H PRN IVP Nausea & Vomiting 04/26/20 18:15 05/26/20 18:14 Polyethylene Glycol (Miralax) 17 gm DAILYPRN PRN ORAL Constipation 04/26/20 18:15 05/26/20 18:14 Rivastigmine Tartrate (Exelon) 1.5 mg TWICE A DAY ORAL 04/27/20 18:00 05/27/20 17:59 04/27/20 17:28 Sertraline HCl (Zoloft) 50 mg DAILY ORAL 04/27/20 09:00 05/27/20 08:59 04/27/20 09:24 Sodium Chloride 1,000 ml @ 50 mls/hr Q20H IV 04/27/20 13:15 05/27/20 13:14 04/27/20 13:30 Tamsulosin HCl (Flomax) 0.4 mg DAILY ORAL 04/27/20 09:00 05/27/20 08:59 04/27/20 09:24 Temazepam (Restoril) 15 mg HSPRN PRN ORAL Insomnia 04/26/20 18:15 05/03/20 18:14 Allergies: Coded Allergies: No Known Allergies (Unverified , 05/30/14) Subjective awake, responsive, agitated, restless. In [facility] isolation room. Objective Last Vital Signs Date Time Temp Pulse Resp B/P (MAP) Pulse Ox O2 Delivery O2 Flow Rate FiO2 04/28/20 11:55 98.4 73 20 164/86 (112) 99 04/28/20 09:00 Room Air Laboratory Tests Test 04/28/20 05:52 White Blood Count 4.0 K/UL (4.8-10.8) #L Red Blood Count 5.64 M/UL (4.70-6.10) Hemoglobin 11.8 G/DL (14.2-18.0) L Hematocrit 37.4 % (42.0-52.0) L Mean Corpuscular Volume 66 FL (80-99) L Mean Corpuscular Hemoglobin 21.0 PG (27.0-31.0) L Mean Corpuscular Hemoglobin Concent 31.7 G/DL (32.0-36.0) L Red Cell Distribution Width 15.2 % (11.6-14.8) H Platelet Count 125 K/UL (150-450) L Mean Platelet Volume 13.3 FL (6.5-10.1) H Neutrophils (%) (Auto) 77.1 % (45.0-75.0) H Lymphocytes (%) (Auto) 13.7 % (20.0-45.0) L Monocytes (%) (Auto) 8.4 % (1.0-10.0) Eosinophils (%) (Auto) 0.3 % (0.0-3.0) Basophils (%) (Auto) 0.4 % (0.0-2.0) Erythrocyte Sedimentation Rate 14 MM/HR (0-20) Sodium Level 139 MMOL/L (136-145) Potassium Level 4.0 MMOL/L (3.5-5.1) Chloride Level 103 MMOL/L (98-107) Carbon Dioxide Level 29 MMOL/L (21-32) Anion Gap 7 mmol/L (5-15) Blood Urea Nitrogen 22 mg/dL (7-18) H Creatinine 1.1 MG/DL (0.55-1.30) Estimat Glomerular Filtration Rate > 60 mL/min (>60) Glucose Level 70 MG/DL (74-106) L Calcium Level 8.2 MG/DL (8.5-10.1) L Phosphorus Level 3.1 MG/DL (2.5-4.9) Magnesium Level 1.8 MG/DL (1.8-2.4) Total Bilirubin 0.3 MG/DL (0.2-1.0) Aspartate Amino Transf (AST/SGOT) 34 U/L (15-37) Alanine Aminotransferase (ALT/SGPT) 17 U/L (12-78) Alkaline Phosphatase 84 U/L (46-116) Troponin I 0.146 ng/mL (0.000-0.056) C-Reactive Protein, Quantitative 0.9 mg/dL (0.00-0.90) Total Protein 6.6 G/DL (6.4-8.2) Albumin 3.0 G/DL (3.4-5.0) L Globulin 3.6 g/dL Albumin/Globulin Ratio 0.8 (1.0-2.7) L Microbiology Date/Time Source Procedure Growth Status 04/27/20 07:10 Nasopharynx SARS-CoV-2 RdRp Gene Assay - Final Complete 04/26/20 18:00 Rectum - Final NO CARBAPENEM-RESISTANT ENTEROBACTERI... Complete 04/26/20 18:00 Rectal Mucosa VRE Culture - Final NO VANCOMYCIN RESISTANT ENTEROCOCCUS ... Complete 04/26/20 18:00 Blood Blood Culture - Preliminary NO GROWTH AFTER 24 HOURS Resulted 04/26/20 15:55 Blood Blood Culture - Preliminary NO GROWTH AFTER 24 HOURS Resulted Intake and Output 04/27/20 04/28/20 19:00 07:00 Intake Total 450 ml 240 ml Output Total 1200 ml 500 ml Balance -750 ml -260 ml Intake Oral 140 ml 240 ml IV Total 310 ml Output Urine Total 1200 ml 500 ml # Voids 3 4 Objective General: No acute distress, awake, responsive, restless. HEENT: NCAT, sclera anicteric, PERRL, EOMI. Neck: Supple, no significant jugular venous distention, Lungs: Good inspiratory effort, decreased air at the base, no Wheeze or Rales. Heart: Regular rate and rhythm, normal S1/S2, no murmurs Abdomen: soft, nontender, nondistended. Normoactive bowel sounds. / Rectal: Refused and deferred. Extremities: No Cyanosis , clubbing or edema. Neuro: A&O x 2, Able to move all extremities Skin: warm, no rashes or lesions Assessment/Plan Assessment/Plan ASSESSMENT: This is an 89-year-old male with: 1. pancytopenia 2. Urinary tract infection. 3. COVID-19 infection. 4. Hypertension. 5. Benign prostatic hypertrophy. 6. Hypothyroidism. 7. Hypercholesterolemia. 8. Diverticulosis. TREATMENT: 1. pancytopenia most likely secondary to COVID-19 infection. 2. Urinary tract infection. The patient has been started empirically on intravenous ceftriaxone. 3. COVID-19 positive. An Infectious Disease consultation has been obtained with Dr. Lanier and pulmonary critical CARE consultation with Dr. Yumiko Valerio. 4. Hypertension. The patient is currently hypotensive. Hold lisinopril. 5. Benign prostatic hypertrophy. Continue Flomax as above. 6. Hypothyroidism. Continue Synthroid as above. 7. Hypercholesterolemia. Continue simvastatin as above. 8. Diverticulosis. 9.CAD s/p CABG DVT prophylaxis: SCD CODE STATUS: DNR DC planning to assisted living. Rudy Oakley MD Apr 28, 2020 15:00
[2020-04-28 16:00] VITALS: BP 189/95
--- NOTE | 2020-04-28 17:13 | Pulmonology Progress Note ---
Subjective ROS Limited/Unobtainable: No Constitutional: Reports: no symptoms Allergies: Coded Allergies: No Known Allergies (Unverified , 05/30/14) Objective Last 24 Hour Vital Signs Date Time Temp Pulse Resp B/P (MAP) Pulse Ox O2 Delivery O2 Flow Rate FiO2 04/28/20 16:00 98.0 70 21 189/95 (126) 98 04/28/20 11:55 98.4 73 20 164/86 (112) 99 04/28/20 09:32 70 04/28/20 09:00 189/60 04/28/20 09:00 Room Air 04/28/20 08:00 97.9 73 20 189/60 (103) 97 04/28/20 04:00 59 04/28/20 04:00 98.1 62 20 124/77 (93) 96 04/28/20 00:00 97.8 62 17 115/74 (88) 96 04/28/20 00:00 105 04/27/20 21:00 Room Air 04/27/20 20:00 65 04/27/20 20:00 98.1 64 16 111/78 (89) 96 Intake and Output 04/27/20 04/28/20 19:00 07:00 Intake Total 450 ml 240 ml Output Total 1200 ml 500 ml Balance -750 ml -260 ml Intake Oral 140 ml 240 ml IV Total 310 ml Output Urine Total 1200 ml 500 ml # Voids 3 4 General Appearance: WD/WN HEENT: normocephalic, atraumatic Respiratory: chest wall non-tender Cardiovascular: normal peripheral pulses, normal rate Abdomen: normal bowel sounds, soft, non tender Genitourinary: normal external genitalia Skin: no rash Neurologic: continuous improvement engineer II-XII grossly normal Lymphatic: no neck adenopathy Microbiology Date/Time Source Procedure Growth Status 04/27/20 07:10 Nasopharynx SARS-CoV-2 RdRp Gene Assay - Final Complete 04/26/20 18:00 Rectum - Final NO CARBAPENEM-RESISTANT ENTEROBACTERI... Complete 04/26/20 18:00 Rectal Mucosa VRE Culture - Final NO VANCOMYCIN RESISTANT ENTEROCOCCUS ... Complete 04/26/20 18:00 Blood Blood Culture - Preliminary NO GROWTH AFTER 24 HOURS Resulted 04/26/20 15:55 Blood Blood Culture - Preliminary NO GROWTH AFTER 24 HOURS Resulted Laboratory Tests 04/28/20 05:52: White Blood Count 4.0#L, Red Blood Count 5.64, Hemoglobin 11.8L, Hematocrit 37.4L, Mean Corpuscular Volume 66L, Mean Corpuscular Hemoglobin 21.0L, Mean Corpuscular Hemoglobin Concent 31.7L, Red Cell Distribution Width 15.2H, Platelet Count 125L, Mean Platelet Volume 13.3H, Neutrophils (%) (Auto) 77.1H, Lymphocytes (%) (Auto) 13.7L, Monocytes (%) (Auto) 8.4, Eosinophils (%) (Auto) 0.3, Basophils (%) (Auto) 0.4, Erythrocyte Sedimentation Rate 14, Sodium Level 139, Potassium Level 4.0, Chloride Level 103, Carbon Dioxide Level 29, Anion Gap 7, Blood Urea Nitrogen 22H, Creatinine 1.1, Estimat Glomerular Filtration Rate > 60, Glucose Level 70L, Calcium Level 8.2L, Phosphorus Level 3.1, Magnesium Level 1.8, Total Bilirubin 0.3, Aspartate Amino Transf (AST/SGOT) 34, Alanine Aminotransferase (ALT/SGPT) 17, Alkaline Phosphatase 84, Troponin I 0.146H, C- Reactive Protein, Quantitative 0.9, Total Protein 6.6, Albumin 3.0L, Globulin 3.6, Albumin/Globulin Ratio 0.8L Current Medications Medications (Trade) Dose Ordered Sig/Viktor Route PRN Reason Start Time Stop Time Status Last Admin Dose Admin Acetaminophen (Tylenol) 650 mg Q4H PRN ORAL fever 04/26/20 18:15 05/26/20 18:14 Albuterol/ Ipratropium (Albuterol/ Ipratropium) 3 ml Q4H PRN HHN Shortness of Breath 04/26/20 18:15 05/01/20 18:14 Ceftriaxone Sodium 1 gm/ Dextrose 55 ml @ 110 mls/hr Q24H IVPB 04/27/20 15:00 05/04/20 14:59 04/27/20 15:06 Levothyroxine Sodium (Synthroid) 112 mcg Q24H ORAL 04/27/20 06:30 05/27/20 06:29 04/27/20 07:21 Lisinopril (PriniviL) 40 mg DAILY ORAL 04/27/20 13:15 05/27/20 08:59 04/27/20 13:31 Ondansetron HCl (Zofran) 4 mg Q6H PRN IVP Nausea & Vomiting 04/26/20 18:15 05/26/20 18:14 Polyethylene Glycol (Miralax) 17 gm DAILYPRN PRN ORAL Constipation 04/26/20 18:15 05/26/20 18:14 Rivastigmine Tartrate (Exelon) 1.5 mg TWICE A DAY ORAL 04/27/20 18:00 05/27/20 17:59 04/27/20 17:28 Sertraline HCl (Zoloft) 50 mg DAILY ORAL 04/27/20 09:00 05/27/20 08:59 04/27/20 09:24 Sodium Chloride 1,000 ml @ 50 mls/hr Q20H IV 04/27/20 13:15 05/27/20 13:14 04/27/20 13:30 Tamsulosin HCl (Flomax) 0.4 mg DAILY ORAL 04/27/20 09:00 05/27/20 08:59 04/27/20 09:24 Temazepam (Restoril) 15 mg HSPRN PRN ORAL Insomnia 04/26/20 18:15 05/03/20 18:14 Assessment/Plan Problems: (1) UTI (urinary tract infection) (2) Pancytopenia (3) COVID-19 (4) History of hypertension (5) History of CVA (cerebrovascular accident) (6) Hx of endarterectomy (7) Hx of CABG (8) Hypothyroidism Assessment/Plan urine cultures are pending iv abx, on ceftriaxone now watch wbc, reverse isolation now covid isolation check inflammatory markers: CRP monitor BP resume old meds dvt prophylaxis Yumiko Valerio MD Apr 28, 2020 17:13
[2020-04-28 20:00] VITALS: BP 140/85
[2020-04-29] VITALS: BP 136/77
[2020-04-29 04:00] VITALS: BP 133/82
--- NOTE | 2020-04-29 06:45 | Cardiac Electrophysiology PN ---
Assessment/Plan Assessment/Plan 1. Sinus bradycardia, heart rate down to 30s. No evidence of heart block off of any sinus or UK-koaal-[id number] agents. The patient is already on Synthroid. Echocardiogram is also pending. HR better today 2. Troponin leak and history of coronary artery bypass graft, off beta-best in view of bradycardia. Denies any chest pain. He is not on aspirin in view of thrombocytopenia with platelet count of 97, but may benefit from Lipitor. Refusing meds and even monitor. Echo pending. Repeat lab work and troponin from today pending 3. Leukopenia with white count of 1.4, could be due to the patient's COVID. 4. Status post carotid endarterectomy. 5. COVID. 6. UTI.On Ceftriaxone 7. Hypertension, on lisinopril 40 mg daily. 8. History of benign prostatic hypertrophy, on Flomax. 9. Depression, on Zoloft. ZANE RN Subjective Subjective Refusing meds and refusing tele. In Covid isolation on room Air in NAD. Repeat troponin from today pending. table games shift manager RN at bedside Objective Last 24 Hour Vital Signs Date Time Temp Pulse Resp B/P (MAP) Pulse Ox O2 Delivery O2 Flow Rate FiO2 04/29/20 04:00 97.7 80 20 133/82 (99) 95 04/29/20 00:00 98.1 89 17 136/77 (96) 96 04/28/20 21:00 Room Air 04/28/20 20:00 97.9 84 18 140/85 (103) 94 04/28/20 16:00 98.0 70 21 189/95 (126) 98 04/28/20 11:55 98.4 73 20 164/86 (112) 99 04/28/20 09:32 70 04/28/20 09:00 189/60 04/28/20 09:00 Room Air 04/28/20 08:00 97.9 73 20 189/60 (103) 97 Intake and Output 04/28/20 04/29/20 19:00 07:00 Intake Total 240 ml Output Total 300 ml Balance -300 ml 240 ml Intake Oral 240 ml Output Urine Total 300 ml # Voids 1 3 Microbiology Date/Time Source Procedure Growth Status 04/27/20 13:30 Indwelling Cath Urine Culture - Preliminary NO GROWTH Resulted 04/27/20 07:10 Nasopharynx SARS-CoV-2 RdRp Gene Assay - Final Complete 04/26/20 18:00 Rectum - Final NO CARBAPENEM-RESISTANT ENTEROBACTERI... Complete 04/26/20 18:00 Rectal Mucosa VRE Culture - Final NO VANCOMYCIN RESISTANT ENTEROCOCCUS ... Complete 04/26/20 18:00 Nasal Nares MRSA Culture - Final NO METHICILLIN RESISTANT STAPH AUREUS... Complete 04/26/20 18:00 Blood Blood Culture - Preliminary NO GROWTH AFTER 24 HOURS Resulted 04/26/20 16:28 Urine,Clean Catch Urine Culture - Preliminary Mixed Urogenital Contaminants Resulted 04/26/20 15:55 Blood Blood Culture - Preliminary NO GROWTH AFTER 24 HOURS Resulted Objective HEAD AND NECK: No JVD. LUNGS: Clear. CARDIOVASCULAR: Regular S1 and S2, bradycardic. Status post sternotomy. ABDOMEN: Soft. EXTREMITIES: No pitting edema. Jl Scott MD Apr 29, 2020 06:45
[2020-04-29 08:00] VITALS: BP 176/110
[2020-04-29] MEDS: Tamsulosin 0.4mg cap ORAL SCH (09:00)
[2020-04-29] MEDS: Exelon 1.5mg cap ORAL SCH ×2 (09:00→17:19)
[2020-04-29] MEDS: Sertraline 50mg tab ORAL SCH (09:00)
[2020-04-29] MEDS: Lisinopril 20mg tab ORAL SCH (09:00)
[2020-04-29 12:00] VITALS: BP 126/67
--- NOTE | 2020-04-29 12:52 | Pulmonology Progress Note ---
Subjective ROS Limited/Unobtainable: No Interval Events: refusing meds and treatment Constitutional: Reports: no symptoms Allergies: Coded Allergies: No Known Allergies (Unverified , 05/30/14) Objective Last 24 Hour Vital Signs Date Time Temp Pulse Resp B/P (MAP) Pulse Ox O2 Delivery O2 Flow Rate FiO2 04/29/20 09:00 Room Air 04/29/20 09:00 175/100 04/29/20 08:00 97.7 67 22 176/110 (132) 97 04/29/20 04:00 97.7 80 20 133/82 (99) 95 04/29/20 00:00 98.1 89 17 136/77 (96) 96 04/28/20 21:00 Room Air 04/28/20 20:00 97.9 84 18 140/85 (103) 94 04/28/20 16:00 98.0 70 21 189/95 (126) 98 Intake and Output 04/28/20 04/29/20 19:00 07:00 Intake Total 240 ml Output Total 300 ml Balance -300 ml 240 ml Intake Oral 240 ml Output Urine Total 300 ml # Voids 1 3 General Appearance: WD/WN HEENT: normocephalic, atraumatic Respiratory: chest wall non-tender Cardiovascular: normal peripheral pulses, normal rate Abdomen: normal bowel sounds, soft, non tender Genitourinary: normal external genitalia Skin: no rash Neurologic: oral and maxillofacial surgeon II-XII grossly normal Lymphatic: no neck adenopathy Microbiology Date/Time Source Procedure Growth Status 04/27/20 13:30 Indwelling Cath Urine Culture - Preliminary NO GROWTH Resulted 04/27/20 07:10 Nasopharynx SARS-CoV-2 RdRp Gene Assay - Final Complete 04/26/20 18:00 Rectum - Final NO CARBAPENEM-RESISTANT ENTEROBACTERI... Complete 04/26/20 18:00 Rectal Mucosa VRE Culture - Final NO VANCOMYCIN RESISTANT ENTEROCOCCUS ... Complete 04/26/20 18:00 Nasal Nares MRSA Culture - Final NO METHICILLIN RESISTANT STAPH AUREUS... Complete 04/26/20 18:00 Blood Blood Culture - Preliminary NO GROWTH AFTER 24 HOURS Resulted 04/26/20 16:28 Urine,Clean Catch Urine Culture - Preliminary Mixed Urogenital Contaminants Resulted 04/26/20 15:55 Blood Blood Culture - Preliminary NO GROWTH AFTER 24 HOURS Resulted Laboratory Tests 04/29/20 08:50: Troponin I 0.114H Current Medications Medications (Trade) Dose Ordered Sig/Viktor Route PRN Reason Start Time Stop Time Status Last Admin Dose Admin Acetaminophen (Tylenol) 650 mg Q4H PRN ORAL fever 04/26/20 18:15 05/26/20 18:14 Albuterol/ Ipratropium (Albuterol/ Ipratropium) 3 ml Q4H PRN HHN Shortness of Breath 04/26/20 18:15 05/01/20 18:14 Ceftriaxone Sodium 1 gm/ Dextrose 55 ml @ 110 mls/hr Q24H IVPB 04/27/20 15:00 05/04/20 14:59 04/27/20 15:06 Levothyroxine Sodium (Synthroid) 112 mcg Q24H ORAL 04/27/20 06:30 05/27/20 06:29 04/27/20 07:21 Lisinopril (PriniviL) 40 mg DAILY ORAL 04/27/20 13:15 05/27/20 08:59 04/29/20 09:00 Ondansetron HCl (Zofran) 4 mg Q6H PRN IVP Nausea & Vomiting 04/26/20 18:15 05/26/20 18:14 Polyethylene Glycol (Miralax) 17 gm DAILYPRN PRN ORAL Constipation 04/26/20 18:15 05/26/20 18:14 Rivastigmine Tartrate (Exelon) 1.5 mg TWICE A DAY ORAL 04/27/20 18:00 05/27/20 17:59 04/29/20 09:00 Sertraline HCl (Zoloft) 50 mg DAILY ORAL 04/27/20 09:00 05/27/20 08:59 04/29/20 09:00 Sodium Chloride 1,000 ml @ 50 mls/hr Q20H IV 04/27/20 13:15 05/27/20 13:14 04/27/20 13:30 Tamsulosin HCl (Flomax) 0.4 mg DAILY ORAL 04/27/20 09:00 05/27/20 08:59 04/29/20 09:00 Temazepam (Restoril) 15 mg HSPRN PRN ORAL Insomnia 04/26/20 18:15 05/03/20 18:14 Assessment/Plan Problems: (1) UTI (urinary tract infection) (2) Pancytopenia Assessment & Plan: better (3) COVID-19 (4) History of hypertension (5) History of CVA (cerebrovascular accident) (6) Hx of endarterectomy (7) Hx of CABG (8) Hypothyroidism Assessment/Plan urine cultures were contaminated iv abx, on ceftriaxone now watch wbc, reverse isolation now covid isolation check inflammatory markers: CRP monitor BP resume old meds dvt prophylaxis Yumiko Valerio MD Apr 29, 2020 12:52
--- NOTE | 2020-04-29 13:28 | Internal Med Progress Note ---
Subjective Physician Name Rudy Oakley Attending Physician Rudy Oakley MD Current Medications Medications (Trade) Dose Ordered Sig/Viktor Route PRN Reason Start Time Stop Time Status Last Admin Dose Admin Acetaminophen (Tylenol) 650 mg Q4H PRN ORAL fever 04/26/20 18:15 05/26/20 18:14 Albuterol/ Ipratropium (Albuterol/ Ipratropium) 3 ml Q4H PRN HHN Shortness of Breath 04/26/20 18:15 05/01/20 18:14 Ceftriaxone Sodium 1 gm/ Dextrose 55 ml @ 110 mls/hr Q24H IVPB 04/27/20 15:00 05/04/20 14:59 04/27/20 15:06 Levothyroxine Sodium (Synthroid) 112 mcg Q24H ORAL 04/27/20 06:30 05/27/20 06:29 04/27/20 07:21 Lisinopril (PriniviL) 40 mg DAILY ORAL 04/27/20 13:15 05/27/20 08:59 04/29/20 09:00 Ondansetron HCl (Zofran) 4 mg Q6H PRN IVP Nausea & Vomiting 04/26/20 18:15 05/26/20 18:14 Polyethylene Glycol (Miralax) 17 gm DAILYPRN PRN ORAL Constipation 04/26/20 18:15 05/26/20 18:14 Rivastigmine Tartrate (Exelon) 1.5 mg TWICE A DAY ORAL 04/27/20 18:00 05/27/20 17:59 04/29/20 09:00 Sertraline HCl (Zoloft) 50 mg DAILY ORAL 04/27/20 09:00 05/27/20 08:59 04/29/20 09:00 Sodium Chloride 1,000 ml @ 50 mls/hr Q20H IV 04/27/20 13:15 05/27/20 13:14 04/27/20 13:30 Tamsulosin HCl (Flomax) 0.4 mg DAILY ORAL 04/27/20 09:00 05/27/20 08:59 04/29/20 09:00 Temazepam (Restoril) 15 mg HSPRN PRN ORAL Insomnia 04/26/20 18:15 05/03/20 18:14 Allergies: Coded Allergies: No Known Allergies (Unverified , 05/30/14) Subjective awake, responsive, agitated, restless. In COVID isolation room. Objective Last Vital Signs Date Time Temp Pulse Resp B/P (MAP) Pulse Ox O2 Delivery O2 Flow Rate FiO2 04/29/20 12:00 98.8 72 22 126/67 (86) 97 04/29/20 09:00 Room Air Laboratory Tests Test 04/29/20 08:50 Troponin I 0.114 ng/mL (0.000-0.056) Microbiology Date/Time Source Procedure Growth Status 04/27/20 13:30 Indwelling Cath Urine Culture - Preliminary NO GROWTH Resulted 04/27/20 07:10 Nasopharynx SARS-CoV-2 RdRp Gene Assay - Final Complete 04/26/20 18:00 Rectum - Final NO CARBAPENEM-RESISTANT ENTEROBACTERI... Complete 04/26/20 18:00 Rectal Mucosa VRE Culture - Final NO VANCOMYCIN RESISTANT ENTEROCOCCUS ... Complete 04/26/20 18:00 Nasal Nares MRSA Culture - Final NO METHICILLIN RESISTANT STAPH AUREUS... Complete 04/26/20 18:00 Blood Blood Culture - Preliminary NO GROWTH AFTER 24 HOURS Resulted 04/26/20 16:28 Urine,Clean Catch Urine Culture - Preliminary Mixed Urogenital Contaminants Resulted 04/26/20 15:55 Blood Blood Culture - Preliminary NO GROWTH AFTER 24 HOURS Resulted Intake and Output 04/28/20 04/29/20 19:00 07:00 Intake Total 240 ml Output Total 300 ml Balance -300 ml 240 ml Intake Oral 240 ml Output Urine Total 300 ml # Voids 1 3 Objective General: No acute distress, awake, responsive. HEENT: NCAT, sclera anicteric, PERRL, EOMI. Neck: Supple, no significant jugular venous distention, Lungs: Fair inspiratory effort, decreased air at the base, no Wheeze or Rales. Heart: Regular rate and rhythm, normal S1/S2, no murmurs Abdomen: soft, nontender, nondistended. Normoactive bowel sounds. / Rectal: Refused and deferred. Extremities: No Cyanosis , clubbing or edema. Neuro: A&O x 2, Able to move all extremities Skin: warm, no rashes or lesions Assessment/Plan Assessment/Plan ASSESSMENT: This is an 89-year-old male with: 1. pancytopenia 2. Urinary tract infection. 3. COVID-19 infection. 4. Hypertension. 5. Benign prostatic hypertrophy. 6. Hypothyroidism. 7. Hypercholesterolemia. 8. Diverticulosis. TREATMENT: 1. pancytopenia most likely secondary to COVID-19 infection. 2. Urinary tract infection. The patient has been started empirically on intravenous ceftriaxone. 3. COVID-19 positive. An Infectious Disease consultation has been obtained with Dr. Lanier and pulmonary critical CARE consultation with Dr. Yumiko Valerio. 4. Hypertension. The patient is currently hypotensive. Hold lisinopril. 5. Benign prostatic hypertrophy. Continue Flomax as above. 6. Hypothyroidism. Continue Synthroid as above. 7. Hypercholesterolemia. Continue simvastatin as above. 8. Diverticulosis. 9.CAD s/p CABG DVT prophylaxis: SCD CODE STATUS: DNR DC planning to assisted living. DC telemetry transfer to medical floor Follow-up with laboratory in the morning. Rudy Oakley MD Apr 29, 2020 13:28
[2020-04-29] MEDS: cefTRIAXone 1 GM in D5W 55 ML IVPB SCH (15:44)
[2020-04-29 16:00] VITALS: BP 142/71
[2020-04-29 20:00] VITALS: BP 144/79
[2020-04-30] VITALS: BP 132/81
[2020-04-30 04:00] VITALS: BP 151/87
[2020-04-30 08:00] VITALS: BP 184/86
[2020-04-30] MEDS: Exelon 1.5mg cap ORAL SCH ×2 (09:39→17:40)
[2020-04-30] MEDS: Tamsulosin 0.4mg cap ORAL SCH (09:39)
[2020-04-30] MEDS: Lisinopril 20mg tab ORAL SCH (09:39)
[2020-04-30] MEDS: Sertraline 50mg tab ORAL SCH (09:39)
[2020-04-30 09:41] LABS: BASOPHILS % (AUTO) 0.4 % (0.0-2.0); EOSINOPHILS % (AUTO) 0.6 % (0.0-3.0); HEMATOCRIT 38.7 % (42.0-52.0); HEMOGLOBIN 12.1 G/DL (14.2-18.0); LYMPHOCYTES % (AUTO) 9.8 % (20.0-45.0); MEAN CORPUSCULAR VOLUME 66 FL (80-99); MONOCYTES % (AUTO) 8.6 % (1.0-10.0); NEUTROPHILS % (AUTO) 80.8 % (45.0-75.0); PLATELET COUNT 107 K/UL (150-450); RED BLOOD COUNT 5.89 M/UL (4.70-6.10); RED CELL DISTRIBUTION WIDTH 14.7 % (11.6-14.8); WHITE BLOOD COUNT 4.3 K/UL (4.8-10.8)
[2020-04-30 10:23] LABS: ALANINE AMINOTRANSFERASE 26 U/L (12-78); ALBUMIN 2.9 G/DL (3.4-5.0); ALBUMIN/GLOBULIN RATIO 0.7 (1.0-2.7); ALKALINE PHOSPHATASE 78 U/L (46-116); ANION GAP 5 mmol/L (5-15); ASPARTATE AMINO TRANSFERASE 45 U/L (15-37); BILIRUBIN,TOTAL 0.5 MG/DL (0.2-1.0); BLOOD UREA NITROGEN 20 mg/dL (7-18); CALCIUM 8.3 MG/DL (8.5-10.1); CARBON DIOXIDE 30 MMOL/L (21-32); CHLORIDE 102 MMOL/L (98-107); CREATININE 0.9 MG/DL (0.55-1.30); PHOSPHORUS 2.5 MG/DL (2.5-4.9); POTASSIUM 3.3 MMOL/L (3.5-5.1); SODIUM 137 MMOL/L (136-145)
--- NOTE | 2020-04-30 11:15 | Infectious Diseases Prog Note ---
Assessment/Plan 89yo M with: COVID pna Leukopenic Satting well on RA 04/26 COVID rapid positive CXR: No acute process BCx NTD UA 5-10 WBC, UCx mixed baldo Cr 1.2 Thrombocytopenia, plts in 90s [facility] resident Plan: Cont CTX 1g IV daily #5/5 - stop abx after dose today Monitor off steroids as pt doing well on RA Not candidate for RDV at this time as doing well on RA Monitor CBC/CMP Monitor temp curve, hemodynamics Monitor resp status COVID isolation D/w RN Thank you for this consult. [facility] will continue to follow. Subjective Allergies: Coded Allergies: No Known Allergies (Unverified , 05/30/14) AF NAD on RA Doing well WBC 4.3 Objective Last 24 Hour Vital Signs Date Time Temp Pulse Resp B/P (MAP) Pulse Ox O2 Delivery O2 Flow Rate FiO2 04/30/20 09:39 184/86 04/30/20 08:00 97.9 61 18 184/86 (118) 97 04/30/20 04:00 97.3 72 18 151/87 (108) 97 04/30/20 00:00 97.3 62 17 132/81 (98) 96 04/29/20 21:00 Room Air 04/29/20 20:00 97.9 56 17 144/79 (100) 96 04/29/20 16:00 98.4 59 19 142/71 (94) 95 04/29/20 12:00 98.8 72 22 126/67 (86) 97 Height (Feet): 5 Height (Inches): 4.00 Weight (Pounds): 155 Gen: NAD HEENT: NCAT Pulm: BL chest rise Abd: Non-distended Ext: No c/c/e Skin: No visible rashes Neuro: Awake Microbiology Date/Time Source Procedure Growth Status 04/27/20 13:30 Indwelling Cath Urine Culture - Final NO GROWTH AFTER 48 HOURS Complete Laboratory Tests Test 04/30/20 08:10 White Blood Count 4.3 K/UL (4.8-10.8) L Red Blood Count 5.89 M/UL (4.70-6.10) Hemoglobin 12.1 G/DL (14.2-18.0) L Hematocrit 38.7 % (42.0-52.0) L Mean Corpuscular Volume 66 FL (80-99) L Mean Corpuscular Hemoglobin 20.6 PG (27.0-31.0) L Mean Corpuscular Hemoglobin Concent 31.4 G/DL (32.0-36.0) L Red Cell Distribution Width 14.7 % (11.6-14.8) Platelet Count 107 K/UL (150-450) L Mean Platelet Volume 7.9 FL (6.5-10.1) Neutrophils (%) (Auto) 80.8 % (45.0-75.0) H Lymphocytes (%) (Auto) 9.8 % (20.0-45.0) L Monocytes (%) (Auto) 8.6 % (1.0-10.0) Eosinophils (%) (Auto) 0.6 % (0.0-3.0) Basophils (%) (Auto) 0.4 % (0.0-2.0) Sodium Level 137 MMOL/L (136-145) Potassium Level 3.3 MMOL/L (3.5-5.1) L Chloride Level 102 MMOL/L (98-107) Carbon Dioxide Level 30 MMOL/L (21-32) Anion Gap 5 mmol/L (5-15) Blood Urea Nitrogen 20 mg/dL (7-18) H Creatinine 0.9 MG/DL (0.55-1.30) Estimat Glomerular Filtration Rate > 60 mL/min (>60) Glucose Level 76 MG/DL (74-106) Calcium Level 8.3 MG/DL (8.5-10.1) L Phosphorus Level 2.5 MG/DL (2.5-4.9) Magnesium Level 1.9 MG/DL (1.8-2.4) Total Bilirubin 0.5 MG/DL (0.2-1.0) Aspartate Amino Transf (AST/SGOT) 45 U/L (15-37) H Alanine Aminotransferase (ALT/SGPT) 26 U/L (12-78) Alkaline Phosphatase 78 U/L (46-116) Total Protein 6.8 G/DL (6.4-8.2) Albumin 2.9 G/DL (3.4-5.0) L Globulin 3.9 g/dL Albumin/Globulin Ratio 0.7 (1.0-2.7) L Thyroid Stimulating Hormone (TSH) 1.853 uiU/mL (0.358-3.740) Current Medications Medications (Trade) Dose Ordered Sig/Viktor Route PRN Reason Start Time Stop Time Status Last Admin Dose Admin Acetaminophen (Tylenol) 650 mg Q4H PRN ORAL fever 04/26/20 18:15 05/26/20 18:14 Albuterol/ Ipratropium (Albuterol/ Ipratropium) 3 ml Q4H PRN HHN Shortness of Breath 04/26/20 18:15 05/01/20 18:14 Ceftriaxone Sodium 1 gm/ Dextrose 55 ml @ 110 mls/hr Q24H IVPB 04/27/20 15:00 05/04/20 14:59 04/29/20 15:44 Clonidine HCl (Catapres Tab) 0.1 mg Q6H PRN ORAL For High Blood Pressure 04/30/20 10:33 07/29/20 10:32 Levothyroxine Sodium (Synthroid) 112 mcg Q24H ORAL 04/27/20 06:30 05/27/20 06:29 04/30/20 06:15 Lisinopril (PriniviL) 40 mg DAILY ORAL 04/27/20 13:15 05/27/20 08:59 04/30/20 09:39 Ondansetron HCl (Zofran) 4 mg Q6H PRN IVP Nausea & Vomiting 04/26/20 18:15 05/26/20 18:14 Polyethylene Glycol (Miralax) 17 gm DAILYPRN PRN ORAL Constipation 04/26/20 18:15 05/26/20 18:14 Potassium Chloride (K-Dur) 40 meq ONCE ORAL 04/30/20 12:00 04/30/20 13:00 Rivastigmine Tartrate (Exelon) 1.5 mg TWICE A DAY ORAL 04/27/20 18:00 05/27/20 17:59 04/30/20 09:39 Sertraline HCl (Zoloft) 50 mg DAILY ORAL 04/27/20 09:00 05/27/20 08:59 04/30/20 09:39 Sodium Chloride 1,000 ml @ 50 mls/hr Q20H IV 04/27/20 13:15 05/27/20 13:14 04/30/20 01:43 Tamsulosin HCl (Flomax) 0.4 mg DAILY ORAL 04/27/20 09:00 05/27/20 08:59 04/30/20 09:39 Temazepam (Restoril) 15 mg HSPRN PRN ORAL Insomnia 04/26/20 18:15 05/03/20 18:14 Lesley Lanier M.D. Apr 30, 2020 11:15
[2020-04-30 12:00] VITALS: BP 178/99
[2020-04-30] MEDS: cefTRIAXone 1 GM in D5W 55 ML IVPB SCH (15:17)
--- NOTE | 2020-04-30 15:55 | Pulmonology Progress Note ---
Subjective ROS Limited/Unobtainable: No Interval Events: refusing meds and treatment Constitutional: Reports: no symptoms Allergies: Coded Allergies: No Known Allergies (Unverified , 05/30/14) Objective Last 24 Hour Vital Signs Date Time Temp Pulse Resp B/P (MAP) Pulse Ox O2 Delivery O2 Flow Rate FiO2 04/30/20 12:02 178/97 04/30/20 12:00 98.1 65 18 178/99 (125) 95 04/30/20 09:39 184/86 04/30/20 09:00 Room Air 04/30/20 08:00 97.9 61 18 184/86 (118) 97 04/30/20 04:00 97.3 72 18 151/87 (108) 97 04/30/20 00:00 97.3 62 17 132/81 (98) 96 04/29/20 21:00 Room Air 04/29/20 20:00 97.9 56 17 144/79 (100) 96 04/29/20 16:00 98.4 59 19 142/71 (94) 95 Intake and Output 04/29/20 04/30/20 19:00 07:00 Intake Total 240 ml 118 ml Output Total 200 ml Balance 40 ml 118 ml Intake Oral 240 ml Other 118 ml Output Urine Total 200 ml # Voids 1 2 # Bowel Movements 1 General Appearance: WD/WN HEENT: normocephalic, atraumatic Respiratory: chest wall non-tender Cardiovascular: normal peripheral pulses, normal rate Abdomen: normal bowel sounds, soft, non tender Genitourinary: normal external genitalia Skin: no rash Neurologic: open developer operator II-XII grossly normal Lymphatic: no neck adenopathy Laboratory Tests 04/30/20 08:10: White Blood Count 4.3L, Red Blood Count 5.89, Hemoglobin 12.1L, Hematocrit 38.7L , Mean Corpuscular Volume 66L, Mean Corpuscular Hemoglobin 20.6L, Mean Corpuscular Hemoglobin Concent 31.4L, Red Cell Distribution Width 14.7, Platelet Count 107L, Mean Platelet Volume 7.9, Neutrophils (%) (Auto) 80.8H, Lymphocytes (%) (Auto) 9.8L, Monocytes (%) (Auto) 8.6, Eosinophils (%) (Auto) 0.6, Basophils (%) (Auto) 0.4, Sodium Level 137, Potassium Level 3.3L, Chloride Level 102, Carbon Dioxide Level 30, Anion Gap 5, Blood Urea Nitrogen 20H, Creatinine 0.9, Estimat Glomerular Filtration Rate > 60, Glucose Level 76, Calcium Level 8.3L, Phosphorus Level 2.5, Magnesium Level 1.9, Total Bilirubin 0.5, Aspartate Amino Transf (AST/SGOT) 45H, Alanine Aminotransferase (ALT/SGPT) 26, Alkaline Phosphatase 78, Total Protein 6.8, Albumin 2.9L, Globulin 3.9, Albumin/Globulin Ratio 0.7L, Thyroid Stimulating Hormone (TSH) 1.853 Current Medications Medications (Trade) Dose Ordered Sig/Viktor Route PRN Reason Start Time Stop Time Status Last Admin Dose Admin Acetaminophen (Tylenol) 650 mg Q4H PRN ORAL fever 04/26/20 18:15 05/26/20 18:14 Albuterol/ Ipratropium (Albuterol/ Ipratropium) 3 ml Q4H PRN HHN Shortness of Breath 04/26/20 18:15 05/01/20 18:14 Ceftriaxone Sodium 1 gm/ Dextrose 55 ml @ 110 mls/hr Q24H IVPB 04/27/20 15:00 05/04/20 14:59 04/30/20 15:17 Clonidine HCl (Catapres Tab) 0.1 mg Q6H PRN ORAL For High Blood Pressure 04/30/20 10:33 07/29/20 10:32 04/30/20 12:02 Levothyroxine Sodium (Synthroid) 112 mcg Q24H ORAL 04/27/20 06:30 05/27/20 06:29 04/30/20 06:15 Lisinopril (PriniviL) 40 mg DAILY ORAL 04/27/20 13:15 05/27/20 08:59 04/30/20 09:39 Ondansetron HCl (Zofran) 4 mg Q6H PRN IVP Nausea & Vomiting 04/26/20 18:15 05/26/20 18:14 Polyethylene Glycol (Miralax) 17 gm DAILYPRN PRN ORAL Constipation 04/26/20 18:15 05/26/20 18:14 Rivastigmine Tartrate (Exelon) 1.5 mg TWICE A DAY ORAL 04/27/20 18:00 05/27/20 17:59 04/30/20 09:39 Sertraline HCl (Zoloft) 50 mg DAILY ORAL 04/27/20 09:00 05/27/20 08:59 04/30/20 09:39 Sodium Chloride 1,000 ml @ 50 mls/hr Q20H IV 04/27/20 13:15 05/27/20 13:14 04/30/20 01:43 Tamsulosin HCl (Flomax) 0.4 mg DAILY ORAL 04/27/20 09:00 05/27/20 08:59 04/30/20 09:39 Temazepam (Restoril) 15 mg HSPRN PRN ORAL Insomnia 04/26/20 18:15 05/03/20 18:14 Assessment/Plan Problems: (1) UTI (urinary tract infection) (2) Pancytopenia Assessment & Plan: better (3) COVID-19 (4) History of hypertension (5) History of CVA (cerebrovascular accident) (6) Hx of endarterectomy (7) Hx of CABG (8) Hypothyroidism Assessment/Plan urine cultures were contaminated iv abx, on ceftriaxone now watch wbc, reverse isolation now covid isolation check inflammatory markers: CRP monitor BP resume old meds dvt prophylaxis Yumiko Valerio MD Apr 30, 2020 15:55
--- NOTE | 2020-04-30 17:17 | Internal Med Progress Note ---
Subjective Physician Name Rudy Oakley Attending Physician Rudy Oakley MD Current Medications Medications (Trade) Dose Ordered Sig/Viktor Route PRN Reason Start Time Stop Time Status Last Admin Dose Admin Acetaminophen (Tylenol) 650 mg Q4H PRN ORAL fever 04/26/20 18:15 05/26/20 18:14 Albuterol/ Ipratropium (Albuterol/ Ipratropium) 3 ml Q4H PRN HHN Shortness of Breath 04/26/20 18:15 05/01/20 18:14 Ceftriaxone Sodium 1 gm/ Dextrose 55 ml @ 110 mls/hr Q24H IVPB 04/27/20 15:00 05/04/20 14:59 04/30/20 15:17 Clonidine HCl (Catapres Tab) 0.1 mg Q6H PRN ORAL For High Blood Pressure 04/30/20 10:33 07/29/20 10:32 04/30/20 12:02 Levothyroxine Sodium (Synthroid) 112 mcg Q24H ORAL 04/27/20 06:30 05/27/20 06:29 04/30/20 06:15 Lisinopril (PriniviL) 40 mg DAILY ORAL 04/27/20 13:15 05/27/20 08:59 04/30/20 09:39 Ondansetron HCl (Zofran) 4 mg Q6H PRN IVP Nausea & Vomiting 04/26/20 18:15 05/26/20 18:14 Polyethylene Glycol (Miralax) 17 gm DAILYPRN PRN ORAL Constipation 04/26/20 18:15 05/26/20 18:14 Rivastigmine Tartrate (Exelon) 1.5 mg TWICE A DAY ORAL 04/27/20 18:00 05/27/20 17:59 04/30/20 09:39 Sertraline HCl (Zoloft) 50 mg DAILY ORAL 04/27/20 09:00 05/27/20 08:59 04/30/20 09:39 Sodium Chloride 1,000 ml @ 50 mls/hr Q20H IV 04/27/20 13:15 05/27/20 13:14 04/30/20 01:43 Tamsulosin HCl (Flomax) 0.4 mg DAILY ORAL 04/27/20 09:00 05/27/20 08:59 04/30/20 09:39 Temazepam (Restoril) 15 mg HSPRN PRN ORAL Insomnia 04/26/20 18:15 05/03/20 18:14 Allergies: Coded Allergies: No Known Allergies (Unverified , 05/30/14) Subjective awake, responsive, NAD. In [facility] isolation room, WBC: 4.3, K: 3.3. Objective Last Vital Signs Date Time Temp Pulse Resp B/P (MAP) Pulse Ox O2 Delivery O2 Flow Rate FiO2 04/30/20 12:02 178/97 04/30/20 12:00 98.1 65 18 95 04/30/20 09:00 Room Air Laboratory Tests Test 04/30/20 08:10 White Blood Count 4.3 K/UL (4.8-10.8) L Red Blood Count 5.89 M/UL (4.70-6.10) Hemoglobin 12.1 G/DL (14.2-18.0) L Hematocrit 38.7 % (42.0-52.0) L Mean Corpuscular Volume 66 FL (80-99) L Mean Corpuscular Hemoglobin 20.6 PG (27.0-31.0) L Mean Corpuscular Hemoglobin Concent 31.4 G/DL (32.0-36.0) L Red Cell Distribution Width 14.7 % (11.6-14.8) Platelet Count 107 K/UL (150-450) L Mean Platelet Volume 7.9 FL (6.5-10.1) Neutrophils (%) (Auto) 80.8 % (45.0-75.0) H Lymphocytes (%) (Auto) 9.8 % (20.0-45.0) L Monocytes (%) (Auto) 8.6 % (1.0-10.0) Eosinophils (%) (Auto) 0.6 % (0.0-3.0) Basophils (%) (Auto) 0.4 % (0.0-2.0) Sodium Level 137 MMOL/L (136-145) Potassium Level 3.3 MMOL/L (3.5-5.1) L Chloride Level 102 MMOL/L (98-107) Carbon Dioxide Level 30 MMOL/L (21-32) Anion Gap 5 mmol/L (5-15) Blood Urea Nitrogen 20 mg/dL (7-18) H Creatinine 0.9 MG/DL (0.55-1.30) Estimat Glomerular Filtration Rate > 60 mL/min (>60) Glucose Level 76 MG/DL (74-106) Calcium Level 8.3 MG/DL (8.5-10.1) L Phosphorus Level 2.5 MG/DL (2.5-4.9) Magnesium Level 1.9 MG/DL (1.8-2.4) Total Bilirubin 0.5 MG/DL (0.2-1.0) Aspartate Amino Transf (AST/SGOT) 45 U/L (15-37) H Alanine Aminotransferase (ALT/SGPT) 26 U/L (12-78) Alkaline Phosphatase 78 U/L (46-116) Total Protein 6.8 G/DL (6.4-8.2) Albumin 2.9 G/DL (3.4-5.0) L Globulin 3.9 g/dL Albumin/Globulin Ratio 0.7 (1.0-2.7) L Thyroid Stimulating Hormone (TSH) 1.853 uiU/mL (0.358-3.740) Intake and Output 04/29/20 04/30/20 19:00 07:00 Intake Total 240 ml 168 ml Output Total 200 ml Balance 40 ml 168 ml Intake Oral 240 ml IV Total 50 ml Other 118 ml Output Urine Total 200 ml # Voids 1 2 # Bowel Movements 1 Objective General: No acute distress, awake, responsive. HEENT: NCAT, sclera anicteric, PERRL, EOMI. Neck: Supple, no significant jugular venous distention, Lungs: Fair inspiratory effort, decreased air at the base, no Wheeze or Rales. Heart: Regular rate and rhythm, normal S1/S2, no murmurs Abdomen: soft, nontender, nondistended. Normoactive bowel sounds. / Rectal: Refused and deferred. Extremities: No Cyanosis , clubbing or edema. 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 pancytopenia 2. Urinary tract infection. 3. COVID-19 infection. 4. Hypertension. 5. Benign prostatic hypertrophy. 6. Hypothyroidism. 7. Hypercholesterolemia. 8. Diverticulosis. TREATMENT: 1. pancytopenia most likely secondary to COVID-19 infection. 2. Urinary tract infection. The patient has been started empirically on intravenous ceftriaxone. 3. COVID-19 positive. An Infectious Disease consultation has been obtained with Dr. Lanier and pulmonary critical CARE consultation with Dr. Yumiko Valerio. 4. Hypertension. The patient is currently hypotensive. Hold lisinopril. 5. Benign prostatic hypertrophy. Continue Flomax as above. 6. Hypothyroidism. Continue Synthroid as above. 7. Hypercholesterolemia. Continue simvastatin as above. 8. Diverticulosis. 9.CAD s/p CABG DVT prophylaxis: SCD CODE STATUS: DNR DC planning to assisted living. In Medical Unit Follow-up with laboratory in the morning. Cont CTX 1g IV daily #5/5 - stop abx after dose today Kcl Supplements Rudy Oakley MD Apr 30, 2020 17:17
[2020-04-30 19:03] VITALS: BP 130/75
[2020-04-30 20:00] VITALS: BP 152/99
--- NOTE | 2020-04-30 21:44 | Cardiac Electrophysiology PN ---
Assessment/Plan Assessment/Plan 1. Sinus bradycardia, heart rate down to 30s. No evidence of heart block off of any sinus or [id number] agents. The patient is already on Synthroid. Echocardiogram is also pending. HR better today 2. Troponin leak and history of coronary artery bypass graft, off beta-best in view of bradycardia. Denies any chest pain. He is not on aspirin in view of thrombocytopenia with platelet count of 97, but may benefit from Lipitor. Repeat troponin is lower 3. Leukopenia with white count of 1.4, could be due to the patient's COVID. 4. Status post carotid endarterectomy. 5. COVID. 6. UTI.On Ceftriaxone 7. Hypertension, on lisinopril 40 mg daily. 8. History of benign prostatic hypertrophy, on Flomax. 9. Depression, on Zoloft. ZANE RN Subjective Subjective In Covid isolation on room Air in NAD. Off tele now Objective Last 24 Hour Vital Signs Date Time Temp Pulse Resp B/P (MAP) Pulse Ox O2 Delivery O2 Flow Rate FiO2 04/30/20 19:03 98.8 72 18 130/75 (93) 95 04/30/20 12:02 178/97 04/30/20 12:00 98.1 65 18 178/99 (125) 95 04/30/20 09:39 184/86 04/30/20 09:00 Room Air 04/30/20 08:00 97.9 61 18 184/86 (118) 97 04/30/20 04:00 97.3 72 18 151/87 (108) 97 04/30/20 00:00 97.3 62 17 132/81 (98) 96 Intake and Output 04/29/20 04/30/20 19:00 07:00 Intake Total 240 ml 168 ml Output Total 200 ml Balance 40 ml 168 ml Intake Oral 240 ml IV Total 50 ml Other 118 ml Output Urine Total 200 ml # Voids 1 2 # Bowel Movements 1 Laboratory Tests Test 04/30/20 08:10 White Blood Count 4.3 K/UL (4.8-10.8) L Red Blood Count 5.89 M/UL (4.70-6.10) Hemoglobin 12.1 G/DL (14.2-18.0) L Hematocrit 38.7 % (42.0-52.0) L Mean Corpuscular Volume 66 FL (80-99) L Mean Corpuscular Hemoglobin 20.6 PG (27.0-31.0) L Mean Corpuscular Hemoglobin Concent 31.4 G/DL (32.0-36.0) L Red Cell Distribution Width 14.7 % (11.6-14.8) Platelet Count 107 K/UL (150-450) L Mean Platelet Volume 7.9 FL (6.5-10.1) Neutrophils (%) (Auto) 80.8 % (45.0-75.0) H Lymphocytes (%) (Auto) 9.8 % (20.0-45.0) L Monocytes (%) (Auto) 8.6 % (1.0-10.0) Eosinophils (%) (Auto) 0.6 % (0.0-3.0) Basophils (%) (Auto) 0.4 % (0.0-2.0) Sodium Level 137 MMOL/L (136-145) Potassium Level 3.3 MMOL/L (3.5-5.1) L Chloride Level 102 MMOL/L (98-107) Carbon Dioxide Level 30 MMOL/L (21-32) Anion Gap 5 mmol/L (5-15) Blood Urea Nitrogen 20 mg/dL (7-18) H Creatinine 0.9 MG/DL (0.55-1.30) Estimat Glomerular Filtration Rate > 60 mL/min (>60) Glucose Level 76 MG/DL (74-106) Calcium Level 8.3 MG/DL (8.5-10.1) L Phosphorus Level 2.5 MG/DL (2.5-4.9) Magnesium Level 1.9 MG/DL (1.8-2.4) Total Bilirubin 0.5 MG/DL (0.2-1.0) Aspartate Amino Transf (AST/SGOT) 45 U/L (15-37) H Alanine Aminotransferase (ALT/SGPT) 26 U/L (12-78) Alkaline Phosphatase 78 U/L (46-116) Total Protein 6.8 G/DL (6.4-8.2) Albumin 2.9 G/DL (3.4-5.0) L Globulin 3.9 g/dL Albumin/Globulin Ratio 0.7 (1.0-2.7) L Thyroid Stimulating Hormone (TSH) 1.853 uiU/mL (0.358-3.740) Objective HEAD AND NECK: No JVD. LUNGS: Clear. CARDIOVASCULAR: Regular S1 and S2, bradycardic. Status post sternotomy. ABDOMEN: Soft. EXTREMITIES: No pitting edema. Jl Scott MD Apr 30, 2020 21:44
[2020-05-01] VITALS (7 sets, daily range): BP systolic 109–181; BP diastolic 56–93
[2020-05-01] MEDS: Exelon 1.5mg cap ORAL SCH ×2 (09:53→18:07)
[2020-05-01] MEDS: Tamsulosin 0.4mg cap ORAL SCH (09:53)
[2020-05-01] MEDS: Lisinopril 20mg tab ORAL SCH (09:53)
[2020-05-01] MEDS: Sertraline 50mg tab ORAL SCH (09:54)
--- NOTE | 2020-05-01 14:04 | Pulmonology Progress Note ---
Subjective ROS Limited/Unobtainable: No Interval Events: refusing meds and treatment Constitutional: Reports: no symptoms Allergies: Coded Allergies: No Known Allergies (Unverified , 05/30/14) Objective Last 24 Hour Vital Signs Date Time Temp Pulse Resp B/P (MAP) Pulse Ox O2 Delivery O2 Flow Rate FiO2 05/01/20 12:00 97.3 72 19 109/56 (73) 94 05/01/20 09:53 158/81 05/01/20 09:00 Room Air 05/01/20 08:00 97.9 57 19 158/81 (106) 96 05/01/20 04:26 178/100 05/01/20 04:00 97.2 54 19 175/74 (107) 94 05/01/20 00:00 98.2 65 18 165/85 (111) 99 04/30/20 21:00 Room Air 04/30/20 20:00 99.7 60 18 152/99 (116) 96 04/30/20 19:03 98.8 72 18 130/75 (93) 95 Intake and Output 04/30/20 05/01/20 19:00 07:00 Intake Total 1230 ml 150 ml Output Total 200 ml 200 ml Balance 1030 ml -50 ml Intake Oral 120 ml IV Total 1110 ml 150 ml Output Urine Total 200 ml 200 ml # Voids 2 General Appearance: WD/WN HEENT: normocephalic, atraumatic Respiratory: chest wall non-tender Cardiovascular: normal peripheral pulses, normal rate Abdomen: normal bowel sounds, soft, non tender Genitourinary: normal external genitalia Skin: no rash 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 Lymphatic: no neck adenopathy Current Medications Medications (Trade) Dose Ordered Sig/Viktor Route PRN Reason Start Time Stop Time Status Last Admin Dose Admin Acetaminophen (Tylenol) 650 mg Q4H PRN ORAL fever 04/26/20 18:15 05/26/20 18:14 Albuterol/ Ipratropium (Albuterol/ Ipratropium) 3 ml Q4H PRN HHN Shortness of Breath 04/26/20 18:15 05/01/20 18:14 Clonidine HCl (Catapres Tab) 0.1 mg Q6H PRN ORAL For High Blood Pressure 04/30/20 10:33 07/29/20 10:32 05/01/20 04:26 Levothyroxine Sodium (Synthroid) 112 mcg Q24H ORAL 04/27/20 06:30 05/27/20 06:29 05/01/20 06:45 Lisinopril (PriniviL) 40 mg DAILY ORAL 04/27/20 13:15 05/27/20 08:59 05/01/20 09:53 Ondansetron HCl (Zofran) 4 mg Q6H PRN IVP Nausea & Vomiting 04/26/20 18:15 05/26/20 18:14 Polyethylene Glycol (Miralax) 17 gm DAILYPRN PRN ORAL Constipation 04/26/20 18:15 05/26/20 18:14 Rivastigmine Tartrate (Exelon) 1.5 mg TWICE A DAY ORAL 04/27/20 18:00 05/27/20 17:59 05/01/20 09:53 Sertraline HCl (Zoloft) 50 mg DAILY ORAL 04/27/20 09:00 05/27/20 08:59 05/01/20 09:54 Sodium Chloride 1,000 ml @ 50 mls/hr Q20H IV 04/27/20 13:15 05/27/20 13:14 04/30/20 19:00 Tamsulosin HCl (Flomax) 0.4 mg DAILY ORAL 04/27/20 09:00 05/27/20 08:59 05/01/20 09:53 Temazepam (Restoril) 15 mg HSPRN PRN ORAL Insomnia 04/26/20 18:15 05/03/20 18:14 Assessment/Plan Problems: (1) UTI (urinary tract infection) (2) Pancytopenia Assessment & Plan: better (3) COVID-19 (4) History of hypertension (5) History of CVA (cerebrovascular accident) (6) Hx of endarterectomy (7) Hx of CABG (8) Hypothyroidism Assessment/Plan refusing most of treatment BP was high and went too low after getting catapress urine cultures were contaminated iv abx, on ceftriaxone now watch wbc, reverse isolation now covid isolation check inflammatory markers: CRP monitor BP resume old meds dvt prophylaxis Yumiko Valerio MD May 01, 2020 14:04
--- NOTE | 2020-05-01 15:05 | Internal Med Progress Note ---
Subjective Physician Name Rudy Oakley Attending Physician Rudy Oakley MD Current Medications Medications (Trade) Dose Ordered Sig/Viktor Route PRN Reason Start Time Stop Time Status Last Admin Dose Admin Acetaminophen (Tylenol) 650 mg Q4H PRN ORAL fever 04/26/20 18:15 05/26/20 18:14 Albuterol/ Ipratropium (Albuterol/ Ipratropium) 3 ml Q4H PRN HHN Shortness of Breath 04/26/20 18:15 05/01/20 18:14 Clonidine HCl (Catapres Tab) 0.1 mg Q6H PRN ORAL For High Blood Pressure 04/30/20 10:33 07/29/20 10:32 05/01/20 04:26 Levothyroxine Sodium (Synthroid) 112 mcg Q24H ORAL 04/27/20 06:30 05/27/20 06:29 05/01/20 06:45 Lisinopril (PriniviL) 40 mg DAILY ORAL 04/27/20 13:15 05/27/20 08:59 05/01/20 09:53 Ondansetron HCl (Zofran) 4 mg Q6H PRN IVP Nausea & Vomiting 04/26/20 18:15 05/26/20 18:14 Polyethylene Glycol (Miralax) 17 gm DAILYPRN PRN ORAL Constipation 04/26/20 18:15 05/26/20 18:14 Rivastigmine Tartrate (Exelon) 1.5 mg TWICE A DAY ORAL 04/27/20 18:00 05/27/20 17:59 05/01/20 09:53 Sertraline HCl (Zoloft) 50 mg DAILY ORAL 04/27/20 09:00 05/27/20 08:59 05/01/20 09:54 Sodium Chloride 1,000 ml @ 50 mls/hr Q20H IV 04/27/20 13:15 05/27/20 13:14 05/01/20 14:17 Tamsulosin HCl (Flomax) 0.4 mg DAILY ORAL 04/27/20 09:00 05/27/20 08:59 05/01/20 09:53 Temazepam (Restoril) 15 mg HSPRN PRN ORAL Insomnia 04/26/20 18:15 05/03/20 18:14 Allergies: Coded Allergies: No Known Allergies (Unverified , 05/30/14) Subjective awake, responsive, NAD. In COVID isolation room. Objective Last Vital Signs Date Time Temp Pulse Resp B/P (MAP) Pulse Ox O2 Delivery O2 Flow Rate FiO2 05/01/20 12:00 97.3 72 19 109/56 (73) 94 05/01/20 09:00 Room Air Intake and Output 04/30/20 05/01/20 19:00 07:00 Intake Total 1230 ml 150 ml Output Total 200 ml 200 ml Balance 1030 ml -50 ml Intake Oral 120 ml IV Total 1110 ml 150 ml Output Urine Total 200 ml 200 ml # Voids 2 Objective General: No acute distress, awake, responsive. HEENT: NCAT, sclera anicteric, PERRL, EOMI. Neck: Supple, no significant jugular venous distention, Lungs: Fair inspiratory effort, decreased air at the base, no Wheeze or Rales. Heart: Regular rate and rhythm, normal S1/S2, no murmurs Abdomen: soft, nontender, nondistended. Normoactive bowel sounds. / Rectal: Refused and deferred. Extremities: No Cyanosis , clubbing or edema. 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 pancytopenia 2. Urinary tract infection. 3. COVID-19 infection. 4. Hypertension. 5. Benign prostatic hypertrophy. 6. Hypothyroidism. 7. Hypercholesterolemia. 8. Diverticulosis. TREATMENT: 1. pancytopenia most likely secondary to COVID-19 infection. 2. Urinary tract infection. The patient has been started empirically on intravenous ceftriaxone. 3. COVID-19 positive. An Infectious Disease consultation has been obtained with Dr. Lanier and pulmonary critical CARE consultation with Dr. Yumiko Valerio. 4. Hypertension. The patient is currently hypotensive. Hold lisinopril. 5. Benign prostatic hypertrophy. Continue Flomax as above. 6. Hypothyroidism. Continue Synthroid as above. 7. Hypercholesterolemia. Continue simvastatin as above. 8. Diverticulosis. 9.CAD s/p CABG DVT prophylaxis: SCD CODE STATUS: DNR DC planning to assisted living. In Medical Unit Follow-up with laboratory in the morning. Cont CTX 1g IV daily #5/5 complete Rudy Oakley MD May 01, 2020 15:05
[2020-05-01] MEDS: Miralax 17gm pkt ORAL PRN (21:09)
[2020-05-02] VITALS: BP 130/70
[2020-05-02 04:00] VITALS: BP 141/77
[2020-05-02 08:00] VITALS: BP 143/87
--- NOTE | 2020-05-02 08:22 | Infectious Diseases Prog Note ---
Assessment/Plan 89yo M with: COVID pna Leukopenic Satting well on RA 04/26 COVID rapid positive CXR: No acute process BCx NTD UA 5-10 WBC, UCx mixed baldo Cr 1.2 Thrombocytopenia, plts in 90s [facility] resident Plan: Cont to monitor off abx Monitor off steroids as pt doing well on RA Not candidate for RDV at this time as doing well on RA OK for d/c from ID standpoint Needs COVID isolation for 10 days from positive diagnosis through 05/05 05/01 SP CTX #5 for UTI Monitor CBC/CMP Monitor temp curve, hemodynamics Monitor resp status COVID isolation D/w RN Thank you for this consult. [facility] will continue to follow. Subjective Allergies: Coded Allergies: No Known Allergies (Unverified , 05/30/14) AF NAD on RA Doing well Objective Last 24 Hour Vital Signs Date Time Temp Pulse Resp B/P (MAP) Pulse Ox O2 Delivery O2 Flow Rate FiO2 05/02/20 04:00 97.3 72 19 141/77 (98) 94 05/02/20 00:00 98.2 56 23 130/70 (90) 98 05/01/20 21:34 181/86 05/01/20 21:00 98.2 54 22 181/86 (117) 98 05/01/20 21:00 Room Air 05/01/20 16:00 97.5 65 18 157/93 (114) 94 05/01/20 12:00 97.3 72 19 109/56 (73) 94 05/01/20 09:53 158/81 05/01/20 09:00 Room Air Height (Feet): 5 Height (Inches): 4.00 Weight (Pounds): 155 Gen: NAD HEENT: NCAT Pulm: BL chest rise Abd: Non-distended Ext: No c/c/e Skin: No visible rashes Neuro: Awake Current Medications Medications (Trade) Dose Ordered Sig/Viktor Route PRN Reason Start Time Stop Time Status Last Admin Dose Admin Acetaminophen (Tylenol) 650 mg Q4H PRN ORAL fever 04/26/20 18:15 05/26/20 18:14 Clonidine HCl (Catapres Tab) 0.1 mg Q6H PRN ORAL For High Blood Pressure 04/30/20 10:33 07/29/20 10:32 05/01/20 21:34 Levothyroxine Sodium (Synthroid) 112 mcg Q24H ORAL 04/27/20 06:30 05/27/20 06:29 05/02/20 06:55 Lisinopril (PriniviL) 40 mg DAILY ORAL 04/27/20 13:15 05/27/20 08:59 05/01/20 09:53 Ondansetron HCl (Zofran) 4 mg Q6H PRN IVP Nausea & Vomiting 04/26/20 18:15 05/26/20 18:14 Polyethylene Glycol (Miralax) 17 gm DAILYPRN PRN ORAL Constipation 04/26/20 18:15 05/26/20 18:14 05/01/20 21:09 Rivastigmine Tartrate (Exelon) 1.5 mg TWICE A DAY ORAL 04/27/20 18:00 05/27/20 17:59 05/01/20 18:07 Sertraline HCl (Zoloft) 50 mg DAILY ORAL 04/27/20 09:00 05/27/20 08:59 05/01/20 09:54 Sodium Chloride 1,000 ml @ 50 mls/hr Q20H IV 04/27/20 13:15 05/27/20 13:14 05/01/20 14:17 Tamsulosin HCl (Flomax) 0.4 mg DAILY ORAL 04/27/20 09:00 05/27/20 08:59 05/01/20 09:53 Temazepam (Restoril) 15 mg HSPRN PRN ORAL Insomnia 04/26/20 18:15 05/03/20 18:14 05/01/20 21:35 Lesley Lanier M.D. May 02, 2020 08:21
[2020-05-02] MEDS ORDERED: 1/2 NS 1000ml IV ONE (09:00)
[2020-05-02] MEDS: Exelon 1.5mg cap ORAL SCH ×2 (09:27→17:13)
[2020-05-02] MEDS: Tamsulosin 0.4mg cap ORAL SCH (09:27)
[2020-05-02] MEDS: Sertraline 50mg tab ORAL SCH (09:27)
[2020-05-02] MEDS: Lisinopril 20mg tab ORAL SCH (09:28)
--- NOTE | 2020-05-02 10:33 | Diagnostic Imaging Report ---
Indication: Bilateral leg pain Technique: Grayscale and duplex images of the bilateral lower extremity veins Comparison: None Findings: Bilaterally, grayscale and duplex images demonstrate no evidence of intraluminal thrombus. Normal phasic Doppler waveforms, demonstrating normal augmentation response and no evidence of valvular insufficiency. Greater saphenous vein(s) and tibial veins are patent. Normal compressibility. Incidentally noted is a large debris-filled cyst in the right posterior knee Impression: Negative for evidence of lower extremity deep venous thrombosis bilaterally Incidental finding large debris-filled right knee Ahmadi's cyst
[2020-05-02 12:00] VITALS: BP 120/67
--- NOTE | 2020-05-02 12:25 | Pulmonology Progress Note ---
Subjective ROS Limited/Unobtainable: No Interval Events: refusing meds and treatment Constitutional: Reports: no symptoms HEENT: Repors: no symptoms Respiratory: Reports: no symptoms Allergies: Coded Allergies: No Known Allergies (Unverified , 05/30/14) Objective Last 24 Hour Vital Signs Date Time Temp Pulse Resp B/P (MAP) Pulse Ox O2 Delivery O2 Flow Rate FiO2 05/02/20 09:28 141/77 05/02/20 04:00 97.3 72 19 141/77 (98) 94 05/02/20 00:00 98.2 56 23 130/70 (90) 98 05/01/20 21:34 181/86 05/01/20 21:00 98.2 54 22 181/86 (117) 98 05/01/20 21:00 Room Air 05/01/20 16:00 97.5 65 18 157/93 (114) 94 Intake and Output 05/01/20 05/02/20 18:59 06:59 Intake Total 960 ml Output Total 200 ml 400 ml Balance 760 ml -400 ml Intake Oral 960 ml Output Urine Total 200 ml 400 ml # Voids 2 General Appearance: WD/WN HEENT: normocephalic, atraumatic Respiratory: chest wall non-tender Cardiovascular: normal peripheral pulses, normal rate Abdomen: normal bowel sounds, soft, non tender Genitourinary: normal external genitalia Skin: no rash 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 Lymphatic: no neck adenopathy Current Medications Medications (Trade) Dose Ordered Sig/Viktor Route PRN Reason Start Time Stop Time Status Last Admin Dose Admin Acetaminophen (Tylenol) 650 mg Q4H PRN ORAL fever 04/26/20 18:15 05/26/20 18:14 Clonidine HCl (Catapres Tab) 0.1 mg Q6H PRN ORAL For High Blood Pressure 04/30/20 10:33 07/29/20 10:32 05/01/20 21:34 Levothyroxine Sodium (Synthroid) 112 mcg Q24H ORAL 04/27/20 06:30 05/27/20 06:29 05/02/20 06:55 Lisinopril (PriniviL) 40 mg DAILY ORAL 04/27/20 13:15 05/27/20 08:59 05/02/20 09:28 Ondansetron HCl (Zofran) 4 mg Q6H PRN IVP Nausea & Vomiting 04/26/20 18:15 05/26/20 18:14 Polyethylene Glycol (Miralax) 17 gm DAILYPRN PRN ORAL Constipation 04/26/20 18:15 05/26/20 18:14 05/01/20 21:09 Rivastigmine Tartrate (Exelon) 1.5 mg TWICE A DAY ORAL 04/27/20 18:00 05/27/20 17:59 05/02/20 09:27 Sertraline HCl (Zoloft) 50 mg DAILY ORAL 04/27/20 09:00 05/27/20 08:59 05/02/20 09:27 Sodium Chloride 1,000 ml @ 50 mls/hr Q20H IV 04/27/20 13:15 05/27/20 13:14 05/01/20 14:17 Tamsulosin HCl (Flomax) 0.4 mg DAILY ORAL 04/27/20 09:00 05/27/20 08:59 05/02/20 09:27 Temazepam (Restoril) 15 mg HSPRN PRN ORAL Insomnia 04/26/20 18:15 05/03/20 18:14 05/01/20 21:35 Assessment/Plan Problems: (1) UTI (urinary tract infection) (2) Pancytopenia Assessment & Plan: better (3) COVID-19 (4) History of hypertension (5) History of CVA (cerebrovascular accident) (6) Hx of endarterectomy (7) Hx of CABG (8) Hypothyroidism Assessment/Plan doing better, afebrile, no new complains urine cultures were contaminated iv abx, on ceftriaxone now watch wbc, reverse isolation now covid isolation check inflammatory markers: CRP monitor BP resume old meds dvt prophylaxis Yumiko Valerio MD May 02, 2020 12:25
[2020-05-02] MEDS: Miralax 17gm pkt ORAL PRN (12:27)
--- NOTE | 2020-05-02 13:44 | Cardiac Electrophysiology PN ---
Assessment/Plan Assessment/Plan 1. Sinus bradycardia, heart rate down to 30s. No evidence of heart block off of any sinus or [id number] agents. The patient is already on Synthroid. Echocardiogram is also pending. HR better 2. Troponin leak and history of coronary artery bypass graft, off beta-best in view of bradycardia. Denies any chest pain. Levels low. He is not on aspirin in view of thrombocytopenia with platelet count of 97, but may benefit from Lipitor. 3. Leukopenia with white count of 1.4, could be due to the patient's COVID. 4. Status post carotid endarterectomy. 5. COVID. 6. UTI.On Ceftriaxone 7. Hypertension, on lisinopril 40 mg daily. 8. History of benign prostatic hypertrophy, on Flomax. 9. Depression, on Zoloft. ZANE RN Subjective Subjective In Covid isolation on room Air in NAD. Off tele. No events Objective Last 24 Hour Vital Signs Date Time Temp Pulse Resp B/P (MAP) Pulse Ox O2 Delivery O2 Flow Rate FiO2 05/02/20 09:28 141/77 05/02/20 09:00 Room Air 05/02/20 08:00 97.1 54 19 143/87 (105) 95 05/02/20 04:00 97.3 72 19 141/77 (98) 94 05/02/20 00:00 98.2 56 23 130/70 (90) 98 05/01/20 21:34 181/86 05/01/20 21:00 98.2 54 22 181/86 (117) 98 05/01/20 21:00 Room Air 05/01/20 16:00 97.5 65 18 157/93 (114) 94 Intake and Output 05/01/20 05/02/20 19:00 07:00 Intake Total 960 ml Output Total 200 ml 400 ml Balance 760 ml -400 ml Intake Oral 960 ml Output Urine Total 200 ml 400 ml # Voids 2 Objective HEAD AND NECK: No JVD. LUNGS: Clear. CARDIOVASCULAR: Regular S1 and S2, bradycardic. Status post sternotomy. ABDOMEN: Soft. EXTREMITIES: No pitting edema. Jl Scott MD May 02, 2020 13:44
--- NOTE | 2020-05-02 15:55 | Internal Med Progress Note ---
Subjective Physician Name Rudy Oakley Attending Physician Rudy Oakley MD Current Medications Medications (Trade) Dose Ordered Sig/Viktor Route PRN Reason Start Time Stop Time Status Last Admin Dose Admin Acetaminophen (Tylenol) 650 mg Q4H PRN ORAL fever 04/26/20 18:15 05/26/20 18:14 Clonidine HCl (Catapres Tab) 0.1 mg Q6H PRN ORAL For High Blood Pressure 04/30/20 10:33 07/29/20 10:32 05/01/20 21:34 Levothyroxine Sodium (Synthroid) 112 mcg Q24H ORAL 04/27/20 06:30 05/27/20 06:29 05/02/20 06:55 Lisinopril (PriniviL) 40 mg DAILY ORAL 04/27/20 13:15 05/27/20 08:59 05/02/20 09:28 Ondansetron HCl (Zofran) 4 mg Q6H PRN IVP Nausea & Vomiting 04/26/20 18:15 05/26/20 18:14 Polyethylene Glycol (Miralax) 17 gm DAILYPRN PRN ORAL Constipation 04/26/20 18:15 05/26/20 18:14 05/02/20 12:27 Rivastigmine Tartrate (Exelon) 1.5 mg TWICE A DAY ORAL 04/27/20 18:00 05/27/20 17:59 05/02/20 09:27 Sertraline HCl (Zoloft) 50 mg DAILY ORAL 04/27/20 09:00 05/27/20 08:59 05/02/20 09:27 Sodium Chloride 1,000 ml @ 50 mls/hr Q20H IV 04/27/20 13:15 05/27/20 13:14 05/01/20 14:17 Tamsulosin HCl (Flomax) 0.4 mg DAILY ORAL 04/27/20 09:00 05/27/20 08:59 05/02/20 09:27 Temazepam (Restoril) 15 mg HSPRN PRN ORAL Insomnia 04/26/20 18:15 05/03/20 18:14 05/01/20 21:35 Allergies: Coded Allergies: No Known Allergies (Unverified , 05/30/14) Subjective awake, responsive, NAD. In COVID isolation room. Objective Last Vital Signs Date Time Temp Pulse Resp B/P (MAP) Pulse Ox O2 Delivery O2 Flow Rate FiO2 05/02/20 12:00 96.4 58 20 120/67 (84) 95 05/02/20 09:00 Room Air Intake and Output 05/01/20 05/02/20 18:59 06:59 Intake Total 960 ml Output Total 200 ml 400 ml Balance 760 ml -400 ml Intake Oral 960 ml Output Urine Total 200 ml 400 ml # Voids 2 Objective General: No acute distress, awake, responsive. HEENT: NCAT, sclera anicteric, PERRL, EOMI. Neck: Supple, no significant jugular venous distention, Lungs: Fair inspiratory effort, decreased air at the base, no Wheeze or Rales. Heart: Regular rate and rhythm, normal S1/S2, no murmurs Abdomen: soft, nontender, nondistended. Normoactive bowel sounds. / Rectal: Refused and deferred. Extremities: No Cyanosis , clubbing or edema. 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 pancytopenia 2. Urinary tract infection. 3. COVID-19 infection. 4. Hypertension. 5. Benign prostatic hypertrophy. 6. Hypothyroidism. 7. Hypercholesterolemia. 8. Diverticulosis. TREATMENT: 1. pancytopenia most likely secondary to COVID-19 infection. 2. Urinary tract infection. The patient has been started empirically on intravenous ceftriaxone. 3. COVID-19 positive. An Infectious Disease consultation has been obtained with Dr. Lanier and pulmonary critical CARE consultation with Dr. Yumiko Valerio. 4. Hypertension. The patient is currently hypotensive. Hold lisinopril. 5. Benign prostatic hypertrophy. Continue Flomax as above. 6. Hypothyroidism. Continue Synthroid as above. 7. Hypercholesterolemia. Continue simvastatin as above. 8. Diverticulosis. 9.CAD s/p CABG DVT prophylaxis: SCD CODE STATUS: DNR DC planning to assisted living. In Medical Unit Follow-up with laboratory in the morning. Cont CTX 1g IV daily #5/5 complete Rudy Oakley MD May 02, 2020 15:55
[2020-05-02 16:00] VITALS: BP 150/88
[2020-05-02 20:00] VITALS: BP 154/74
[2020-05-03] VITALS: BP 152/74
[2020-05-03 04:00] VITALS: BP 133/88
[2020-05-03 08:00] VITALS: BP 141/60
[2020-05-03] MEDS: Sertraline 50mg tab ORAL SCH (08:36)
[2020-05-03] MEDS: Tamsulosin 0.4mg cap ORAL SCH (08:37)
[2020-05-03] MEDS: Lisinopril 20mg tab ORAL SCH (08:37)
[2020-05-03] MEDS: Exelon 1.5mg cap ORAL SCH ×2 (08:37→17:27)
--- NOTE | 2020-05-03 11:57 | Pulmonology Progress Note ---
Subjective ROS Limited/Unobtainable: No Interval Events: refusing meds and treatment Constitutional: Reports: no symptoms HEENT: Repors: no symptoms Respiratory: Reports: no symptoms Allergies: Coded Allergies: No Known Allergies (Unverified , 05/30/14) Objective Last 24 Hour Vital Signs Date Time Temp Pulse Resp B/P (MAP) Pulse Ox O2 Delivery O2 Flow Rate FiO2 05/03/20 09:00 Room Air 05/03/20 08:37 133/88 05/03/20 08:00 98.2 62 20 141/60 (87) 95 05/03/20 04:00 97.0 74 17 133/88 (103) 97 05/03/20 00:00 97.3 55 20 152/74 (100) 97 05/02/20 21:00 Room Air 05/02/20 20:00 97.3 57 20 154/74 (100) 97 05/02/20 16:00 98.1 58 20 150/88 (108) 95 05/02/20 12:00 96.4 58 20 120/67 (84) 95 Intake and Output 05/02/20 05/03/20 19:00 07:00 Intake Total 540 ml Output Total 100 ml Balance 540 ml -100 ml Intake Oral 540 ml Output Urine Total 100 ml # Voids 5 1 General Appearance: WD/WN HEENT: normocephalic, atraumatic Respiratory: chest wall non-tender Cardiovascular: normal peripheral pulses, normal rate Abdomen: normal bowel sounds, soft, non tender Genitourinary: normal external genitalia Skin: no rash 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 Lymphatic: no neck adenopathy Laboratory Tests 05/02/20 17:36: POC Whole Blood Glucose [Pending] Current Medications Medications (Trade) Dose Ordered Sig/Viktor Route PRN Reason Start Time Stop Time Status Last Admin Dose Admin Acetaminophen (Tylenol) 650 mg Q4H PRN ORAL fever 04/26/20 18:15 05/26/20 18:14 Clonidine HCl (Catapres Tab) 0.1 mg Q6H PRN ORAL For High Blood Pressure 04/30/20 10:33 07/29/20 10:32 05/01/20 21:34 Levothyroxine Sodium (Synthroid) 112 mcg Q24H ORAL 04/27/20 06:30 05/27/20 06:29 05/03/20 06:28 Lisinopril (PriniviL) 40 mg DAILY ORAL 04/27/20 13:15 05/27/20 08:59 05/03/20 08:37 Ondansetron HCl (Zofran) 4 mg Q6H PRN IVP Nausea & Vomiting 04/26/20 18:15 05/26/20 18:14 Polyethylene Glycol (Miralax) 17 gm DAILYPRN PRN ORAL Constipation 04/26/20 18:15 05/26/20 18:14 05/02/20 12:27 Rivastigmine Tartrate (Exelon) 1.5 mg TWICE A DAY ORAL 04/27/20 18:00 05/27/20 17:59 05/03/20 08:37 Sertraline HCl (Zoloft) 50 mg DAILY ORAL 04/27/20 09:00 05/27/20 08:59 05/03/20 08:36 Sodium Chloride 1,000 ml @ 50 mls/hr Q20H IV 04/27/20 13:15 05/27/20 13:14 05/03/20 08:37 Tamsulosin HCl (Flomax) 0.4 mg DAILY ORAL 04/27/20 09:00 05/27/20 08:59 05/03/20 08:37 Temazepam (Restoril) 15 mg HSPRN PRN ORAL Insomnia 04/26/20 18:15 05/03/20 18:14 05/02/20 21:33 Assessment/Plan Problems: (1) UTI (urinary tract infection) (2) Pancytopenia Assessment & Plan: better (3) COVID-19 (4) History of hypertension (5) History of CVA (cerebrovascular accident) (6) Hx of endarterectomy (7) Hx of CABG (8) Hypothyroidism Assessment/Plan doing better, afebrile, no new complains urine cultures were contaminated iv abx, on ceftriaxone now watch wbc, reverse isolation now covid isolation check inflammatory markers: CRP monitor BP resume old meds dvt prophylaxis Yumiko Valerio MD May 03, 2020 11:57
[2020-05-03 12:00] VITALS: BP 143/77
--- NOTE | 2020-05-03 12:35 | Cardiac Electrophysiology PN ---
Assessment/Plan Assessment/Plan 1. Sinus bradycardia, heart rate down to 30s. No evidence of heart block off of any sinus or [id number] agents. Already on Synthroid. Echocardiogram is also pending. HR better 2. Troponin leak and history of coronary artery bypass graft, off beta-best in view of bradycardia. Denies any chest pain. Levels low. Off aspirin in view of thrombocytopenia with platelet count of 97, but may benefit from Lipitor. 3. Leukopenia with white count of 1.4, could be due to the patient's COVID. 4. Status post carotid endarterectomy. 5. COVID. 6. UTI.On Ceftriaxone 7. Hypertension, on lisinopril 40 mg daily. 8. History of benign prostatic hypertrophy, on Flomax. 9. Depression, on Zoloft. ZANE RN Subjective Subjective In Covid isolation on room Air in NAD. Off tele. No events. No CP or SOB. Objective Last 24 Hour Vital Signs Date Time Temp Pulse Resp B/P (MAP) Pulse Ox O2 Delivery O2 Flow Rate FiO2 05/03/20 12:00 97.3 60 19 143/77 (99) 94 05/03/20 09:00 Room Air 05/03/20 08:37 133/88 05/03/20 08:00 98.2 62 20 141/60 (87) 95 05/03/20 04:00 97.0 74 17 133/88 (103) 97 05/03/20 00:00 97.3 55 20 152/74 (100) 97 05/02/20 21:00 Room Air 05/02/20 20:00 97.3 57 20 154/74 (100) 97 05/02/20 16:00 98.1 58 20 150/88 (108) 95 Intake and Output 05/02/20 05/03/20 19:00 07:00 Intake Total 540 ml Output Total 100 ml Balance 540 ml -100 ml Intake Oral 540 ml Output Urine Total 100 ml # Voids 5 1 Laboratory Tests Test 05/02/20 17:36 POC Whole Blood Glucose Pending Objective HEAD AND NECK: No JVD. LUNGS: Clear. CARDIOVASCULAR: Regular S1 and S2, bradycardic. Status post sternotomy. ABDOMEN: Soft. EXTREMITIES: No pitting edema. Jl Scott MD May 03, 2020 12:35
[2020-05-03 16:00] VITALS: BP 150/72
--- NOTE | 2020-05-03 16:34 | Internal Med Progress Note ---
Subjective Date of Service: May 03, 2020 Physician Name Alex Buchanan Attending Physician Rudy Oakley MD Current Medications Medications (Trade) Dose Ordered Sig/Viktor Route PRN Reason Start Time Stop Time Status Last Admin Dose Admin Acetaminophen (Tylenol) 650 mg Q4H PRN ORAL fever 04/26/20 18:15 05/26/20 18:14 Clonidine HCl (Catapres Tab) 0.1 mg Q6H PRN ORAL For High Blood Pressure 04/30/20 10:33 07/29/20 10:32 05/01/20 21:34 Levothyroxine Sodium (Synthroid) 112 mcg Q24H ORAL 04/27/20 06:30 05/27/20 06:29 05/03/20 06:28 Lisinopril (PriniviL) 40 mg DAILY ORAL 04/27/20 13:15 05/27/20 08:59 05/03/20 08:37 Ondansetron HCl (Zofran) 4 mg Q6H PRN IVP Nausea & Vomiting 04/26/20 18:15 05/26/20 18:14 Polyethylene Glycol (Miralax) 17 gm DAILYPRN PRN ORAL Constipation 04/26/20 18:15 05/26/20 18:14 05/02/20 12:27 Rivastigmine Tartrate (Exelon) 1.5 mg TWICE A DAY ORAL 04/27/20 18:00 05/27/20 17:59 05/03/20 08:37 Sertraline HCl (Zoloft) 50 mg DAILY ORAL 04/27/20 09:00 05/27/20 08:59 05/03/20 08:36 Sodium Chloride 1,000 ml @ 50 mls/hr Q20H IV 04/27/20 13:15 05/27/20 13:14 05/03/20 08:37 Tamsulosin HCl (Flomax) 0.4 mg DAILY ORAL 04/27/20 09:00 05/27/20 08:59 05/03/20 08:37 Temazepam (Restoril) 15 mg HSPRN PRN ORAL Insomnia 04/26/20 18:15 05/03/20 18:14 05/02/20 21:33 Allergies: Coded Allergies: No Known Allergies (Unverified , 05/30/14) ROS Limited/Unobtainable: Yes Subjective 89 YO M admitted with generalized weakness. Now COVID 19 pos. Cover for Int med-Dr Oakley Objective Last Vital Signs Date Time Temp Pulse Resp B/P (MAP) Pulse Ox O2 Delivery O2 Flow Rate FiO2 05/03/20 16:00 98.2 61 20 150/72 (98) 95 05/03/20 09:00 Room Air Laboratory Tests Test 05/02/20 17:36 POC Whole Blood Glucose Pending Intake and Output 05/02/20 05/03/20 19:00 07:00 Intake Total 540 ml Output Total 100 ml Balance 540 ml -100 ml Intake Oral 540 ml Output Urine Total 100 ml # Voids 5 1 Objective Objective General: No acute distress, awake, responsive. HEENT: NCAT, sclera anicteric, PERRL, EOMI. Neck: Supple, no significant jugular venous distention, Lungs: Fair inspiratory effort, decreased air at the base, no Wheeze or Rales. Heart: Regular rate and rhythm, normal S1/S2, no murmurs Abdomen: soft, nontender, nondistended. Normoactive bowel sounds. / Rectal: Refused and deferred. Extremities: No Cyanosis , clubbing or edema. Neuro: A&O x 2, EMAIL MANAGER 2 through 12 grossly intact, Able to move all extremities Skin: warm, no rashes or lesions Assessment/Plan Assessment/Plan Assessment/Plan Assessment/Plan ASSESSMENT: This is an 89-year-old male with: 1. pancytopenia-resolving 2. Urinary tract infection. 3. COVID-19 infection. 4. Hypertension. 5. Benign prostatic hypertrophy. 6. Hypothyroidism. 7. Hypercholesterolemia. 8. Diverticulosis. 9. coronary artery dis TREATMENT: 1. pancytopenia most likely secondary to COVID-19 infection. 2. Urinary tract infection. S/P ceftriaxone. 3. COVID-19 positive. Infectious Disease consultation =Dr. Lanier and pulmonary critical CARE = Dr. Yumiko Valerio. 4. Hypertension. Continue lisinopril. 5. Benign prostatic hypertrophy. Continue Flomax as above. 6. Hypothyroidism. Continue Synthroid as above. 7. Hypercholesterolemia. Continue simvastatin as above. 8. Diverticulosis. 9.CAD s/p CABG DVT prophylaxis: SCD CODE STATUS: DNR DC planning to assisted living. In Medical Unit Follow-up with laboratory in the morning. Alex Buchanan MD May 03, 2020 16:34
[2020-05-03 20:00] VITALS: BP 198/88
[2020-05-04] VITALS: BP 145/84
[2020-05-04 04:00] VITALS: BP 150/81
[2020-05-04 08:00] VITALS: BP 142/83
[2020-05-04] MEDS: Exelon 1.5mg cap ORAL SCH (08:27)
[2020-05-04 08:28] VITALS: BP 150/81
[2020-05-04] MEDS: Lisinopril 20mg tab ORAL SCH (08:28)
[2020-05-04] MEDS: Sertraline 50mg tab ORAL SCH (08:28)
[2020-05-04] MEDS: Tamsulosin 0.4mg cap ORAL SCH (08:28)
--- NOTE | 2020-05-04 10:13 | Pulmonology Progress Note ---
Subjective ROS Limited/Unobtainable: Yes Interval Events: refusing meds and treatment Constitutional: Reports: no symptoms HEENT: Repors: no symptoms Respiratory: Reports: no symptoms Allergies: Coded Allergies: No Known Allergies (Unverified , 05/30/14) Objective Last 24 Hour Vital Signs Date Time Temp Pulse Resp B/P (MAP) Pulse Ox O2 Delivery O2 Flow Rate FiO2 05/04/20 08:28 150/81 05/04/20 08:00 97.3 87 20 142/83 (102) 95 05/04/20 04:00 98.4 71 20 150/81 (104) 95 05/04/20 00:00 98.2 60 20 145/84 (104) 97 05/03/20 22:04 198/88 05/03/20 21:00 Room Air 05/03/20 20:00 98.1 64 19 198/88 (124) 96 05/03/20 16:00 98.2 61 20 150/72 (98) 95 05/03/20 12:00 97.3 60 19 143/77 (99) 94 Intake and Output 05/03/20 05/04/20 19:00 07:00 Intake Total 450 ml 790 ml Output Total 600 ml 1150 ml Balance -150 ml -360 ml Intake Oral 400 ml 240 ml IV Total 50 ml 550 ml Output Urine Total 600 ml 1150 ml # Voids 2 6 # Bowel Movements 2 General Appearance: WD/WN HEENT: normocephalic, atraumatic Respiratory: chest wall non-tender Cardiovascular: normal peripheral pulses, normal rate Abdomen: normal bowel sounds, soft, non tender Genitourinary: normal external genitalia Skin: no rash Neurologic: bread icer II-XII grossly normal Lymphatic: no neck adenopathy Current Medications Medications (Trade) Dose Ordered Sig/Viktor Route PRN Reason Start Time Stop Time Status Last Admin Dose Admin Acetaminophen (Tylenol) 650 mg Q4H PRN ORAL fever 04/26/20 18:15 05/26/20 18:14 Clonidine HCl (Catapres Tab) 0.1 mg Q6H PRN ORAL For High Blood Pressure 04/30/20 10:33 07/29/20 10:32 05/03/20 22:04 Levothyroxine Sodium (Synthroid) 112 mcg Q24H ORAL 04/27/20 06:30 05/27/20 06:29 05/04/20 05:59 Lisinopril (PriniviL) 40 mg DAILY ORAL 04/27/20 13:15 05/27/20 08:59 05/04/20 08:28 Ondansetron HCl (Zofran) 4 mg Q6H PRN IVP Nausea & Vomiting 04/26/20 18:15 05/26/20 18:14 Polyethylene Glycol (Miralax) 17 gm DAILYPRN PRN ORAL Constipation 04/26/20 18:15 05/26/20 18:14 05/02/20 12:27 Rivastigmine Tartrate (Exelon) 1.5 mg TWICE A DAY ORAL 04/27/20 18:00 05/27/20 17:59 05/04/20 08:27 Sertraline HCl (Zoloft) 50 mg DAILY ORAL 04/27/20 09:00 05/27/20 08:59 05/04/20 08:28 Sodium Chloride 1,000 ml @ 50 mls/hr Q20H IV 04/27/20 13:15 05/27/20 13:14 05/03/20 08:37 Tamsulosin HCl (Flomax) 0.4 mg DAILY ORAL 04/27/20 09:00 05/27/20 08:59 05/04/20 08:28 Assessment/Plan Problems: (1) UTI (urinary tract infection) (2) Pancytopenia Assessment & Plan: better (3) COVID-19 (4) History of hypertension (5) History of CVA (cerebrovascular accident) (6) Hx of endarterectomy (7) Hx of CABG (8) Hypothyroidism Assessment/Plan doing better, afebrile, no new complains urine cultures were contaminated iv abx, on ceftriaxone now watch wbc, reverse isolation now covid isolation check inflammatory markers: CRP monitor BP resume old meds dvt prophylaxis Yumiko Valerio MD May 04, 2020 10:13
--- NOTE | 2020-05-06 14:32 | Discharge Summary ---
Discharge Summary Discharge Summary _ DATE OF ADMISSION: 04/26/2020 DATE OF DISCHARGE: 05/04/2020 DISCHARGED BY: Dr. Oakley REASON FOR ADMISSION: 89 years old male , resident of assisted living , with past medical history of coronary artery disease, status post three-vessel CABG about 10 years ago, CVA, hypertension, presented for evaluation due to recurrent falls and increased generalized weakness. At the facility patient was tested positive for COVID-19. CT of the head revealed no acute intracranial pathology. Chest x-ray revealed no acute cardiopulmonary pathology. CT scan of the lumbar spine revealed multilevel degenerative changes , but no evidence of acute fracture. Urinalysis revealed findings , suggestive of possible UTI. Troponin was negative . EKG revealed sinus bradycardia heart rate 53 , no acute ischemic changes . Rapid COVID-19 was positive. CRP 0.9, LDH 173, ferritin 111, CRP 2.1, D-dimer 0.93. Patient admitted with COVID-19 infection, recurrent falls and possible UTI. CONSULTANTS: strategic client executive Dr. Swan pulmonary Dr. Valerio ID specialist Dr. Lanier HOSPITAL COURSE: Patient admitted to medical surgical floor to isolation room. Patient started on empiric antibiotics . Supplemental oxygen was on board to keep pulse oximetry above 92% . Pulse oximetry remained stable on room air. DVT prophylaxis provided . Albuterol via MDI provided. Patient was followed -up with inflammatory markers: CRP trended down Chest x-ray revealed no acute cardiopulmonary process. Blood cultures were negative. Urine culture revealed mixed baldo. ID specialist recommended to monitor patient off antibiotic as well as monitor patient off steroids , since patient was doing well on the room air. Patient was not a candidate for remdesivir as he was on the room air. Patient noted to be pancytopenic, Counts were closely monitored. Prior to discharge WBC up to 4.3, hemoglobin 12.1, hematocrit 38.7, platelet count 103. Special Education Para Professional closely followed Patient had evidence of sinus bradycardia with his heart rate down to 30s , but no evidence of heart block. Patient was not on any sinus or AV carlos affecting agents. Patient was off beta-best. Blood pressure was managed with MAEGAN inhibitor. Synthroid continued. TSH was within normal limits . Echocardiogram revealed ejection fraction of 45 to 50% with mild left ventricular hypertrophy. Patient noted to have minimally elevated troponin: first troponin was negative, second and third were minimally elevated 0.146 and 0.114 respe ctively. Minimally elevated troponin were likely troponin leak . Patient denied chest pain. Patient was off aspirin given thrombocytopenia, but strategic client executive suggested that patient will benefit from statin. Renal parameters and electrolytes were closely monitored. Potassium was replaced Home medication continued. Pulse oximetry remained stable on room air . Patient was stable for discharge to assisted living. ID specialist recommended to continue self-isolation for total of 10 days. FINAL DIAGNOSES: COVID-19 infection Pancytopenia Possible UTI Hypertension History of CABG Hypothyroidism BPH Hypercholesterolemia Sinus bradycardia Troponin leak History of carotid endarterectomy DISCHARGE MEDICATIONS: See Medication Reconciliation list. DISCHARGE INSTRUCTIONS: Patient was discharged to assisted living. Follow-up with a primary care provider in 1 week. I have been assigned to dictate discharge summary for this account. I was not involved in the patient's management. Bernadette Winters NP May 06, 2020 14:32
== END 2020-05-04 11:50 | DRG 178 ==
LOC: EDBD 14:33 → EMR 17:12 → 2E 18:07 → EDBEDREQ 04-27 07:08 → 2E 04-27 19:45 → 4E 04-29 15:07
DX: U07.1 COVID-19 (principal); D61.818 Other pancytopenia; N39.0 Urinary tract infection, site not specified; I10 Essential (primary) hypertension; N40.0 Benign prostatic hyperplasia without lower urinary tract symptoms; E03.9 Hypothyroidism, unspecified; K57.90 Diverticulosis of intestine, part unspecified, without perforation or abscess without bleeding; E78.00 Pure hypercholesterolemia, unspecified; Z98.890 Other specified postprocedural states; I25.10 Atherosclerotic heart disease of native coronary artery without angina pectoris; Z95.1 Presence of aortocoronary bypass graft; Z86.73 Personal history of transient ischemic attack (TIA), and cerebral infarction without residual deficits; F32.9 Major depressive disorder, single episode, unspecified; Z66 Do not resuscitate; R00.1 Bradycardia, unspecified
CPT/HCPCS: 36415; 70450; 71045; 72131; 80053; 81001; 81003; 82550; 82553; 82728; 82962; 83605; 83615; 83690; 83735; 83880; 84100; 84439; 84443; 84481; 84484; 85007; 85025; 85060; 85379; 85610; 85651; 85730; 86140; 87040; 87081; 87086; 93005; 93306; 93970; 96365; 96375; 99285; J8499; U0002